=== PATIENT | female | born 1970 | race Caucasian/White ===

== ENCOUNTER → 2017-12-02 | Outpatient (CLI) | payer OTHER ==
[~2017-12-02] MED LIST: ALPR-624 PO; CYCL-1 PO; HYDR-3973 PO; PANT-47 PO
[2017-12-02 08:21] LABS: BASOPHILS % (AUTO) 0.4 % (0-1); EOSINOPHILS # (AUTO) 0.5 X10'3 (0-0.9); HEMATOCRIT 40.9 % (35.0-45.0); HEMOGLOBIN 14.3 g/dl (12.0-16.0); LYMPHOCYTES # (AUTO) 2.2 X10'3 (1.1-4.8); LYMPHOCYTES % (AUTO) 27.6 % (21-51); MEAN CORPUSCULAR HEMOGLOBIN 32.5 PG (27.0-31.0); MEAN CORPUSCULAR VOLUME 92.7 FL (78-98); MEAN PLATELET VOLUME 8.4 FL (7.4-10.4); MONOCYTES # (AUTO) 0.7 X10'3 (0-0.9); MONOCYTES % (AUTO) 8.8 % (2-12); NEUTROPHILS # (AUTO) 4.6 X10'3 (1.8-7.7); NEUTROPHILS % (AUTO) 57.2 % (42-75); PLATELET COUNT 264 X10'3 (140-440); RED BLOOD COUNT 4.42 X10'6 (4.20-5.60); WHITE BLOOD COUNT 8.1 X10'3 (4.5-11.0)
[2017-12-02 08:23] LABS: CLARITY,URINE Clear (Clear); COLOR,URINE Yellow (Yellow); GLUCOSE, URINE Negative (Neg); KETONES,URINE Negative (Neg); LEUKOCYTE ESTERASE ,URINE Negative (Neg); NITRITES, URINE Negative (Neg); OCCULT BLOOD,URINE Negative (Neg); PROTEIN,URINE Negative (Neg); UA COLLECTION TYPE NON-SPECIFIED; UROBILINOGEN,URINE 0.2 E.U/dL (0.2-1.0)
[2017-12-02 08:44] LABS: ALANINE AMINOTRANSFERASE 94 U/L (12-78); ALBUMIN 3.7 G/DL (3.4-5.0); ALBUMIN/GLOBULIN RATIO 1.1 (1.1-1.5); ALKALINE PHOSPHATASE 102 IU/L (46-116); ASPARTATE AMINO TRANSFERASE 15 U/L (10-37); BILIRUBIN,TOTAL 0.3 MG/DL (0.1-1.0); BLOOD UREA NITROGEN 19 MG/DL (7-18); BUN/CREATININE RATIO 34.5 (6.6-38.0); CALCIUM 8.9 MG/DL (8.5-10.1); CHLORIDE 105 MMOL/L (99-107); CHOLESTEROL 155 MG/DL (0-200); CREATININE 0.55 MG/DL (0.40-0.90); GLUCOSE 92 MG/DL (70-104); HDL CHOLESTEROL 52 MG/DL (35-60); LDL CHOLESTEROL 85 MG/DL (50-100); POTASSIUM 4.4 MMOL/L (3.5-5.1); TOTAL CARBON DIOXIDE 25.7 MMOL/L (24-32); TRIGLYCERIDES 108 MG/DL (20-135); eGFR > 90 ML/MIN
[2017-12-02 09:11] LABS: ANION GAP 11 (8-16); SODIUM 142 MMOL/L (135-145)
== END ==
LOC: LAB 07:31
PROVIDERS: ATTEND Family Medicine
DX: Z00.01 Encounter for general adult medical examination with abnormal findings (principal); Z87.891 Personal history of nicotine dependence
CPT/HCPCS: 36415; 80053; 80061; 81003; 82607; 82746; 84439; 84443; 85025

== ENCOUNTER 2018-02-27 08:59 | Day surgery (SDC) | payer OTHER ==
[~2018-02-27] VITALS: Ht 175.3 cm; Wt 106.8 kg
[2018-02-27] MEDS ORDERED: MIDAZolam 5mg/5ml vial ONE (09:10)
[2018-02-27] MEDS ORDERED: fentaNYL/PF 50MCG/1 ML 2ML syringe ONE (09:10)
[2018-02-27] MEDS ORDERED: LIDOcaine Viscous 15ml cup ONE (09:10)
[2018-02-27] MEDS ORDERED: CYCL-1 PO (09:22)
[2018-02-27 09:35] VITALS: BP 153/83
[2018-02-27 10:10] VITALS: BP 140/80
[2018-02-27 10:20] VITALS: BP 149/91
[2018-02-27 10:30] VITALS: BP 149/85
[2018-02-27 10:40] VITALS: BP 141/89
== END 2018-02-27 10:45 | disposition home or self-care (01) ==
LOC: GI LAB 08:59
PROVIDERS: ATTEND Internal Medicine Gastroenterology
DX: K44.9 Diaphragmatic hernia without obstruction or gangrene (principal); K29.70 Gastritis, unspecified, without bleeding; F17.210 Nicotine dependence, cigarettes, uncomplicated; K21.9 Gastro-esophageal reflux disease without esophagitis; E06.3 Autoimmune thyroiditis; F41.9 Anxiety disorder, unspecified; Z90.49 Acquired absence of other specified parts of digestive tract; Z72.89 Other problems related to lifestyle; Z98.51 Tubal ligation status; Z79.891 Long term (current) use of opiate analgesic; Z79.899 Other long term (current) drug therapy
CPT/HCPCS: 43239; 99152; J2250; J3010; J7030; A4620; G0500

== ENCOUNTER 2018-04-25 15:35 | Outpatient (CLI) | payer OTHER ==
[~2018-04-25 15:35] MED LIST changes: -ALPR-624 PO
== END 2018-04-25 23:59 | disposition home or self-care (01) ==
LOC: RAD 15:35
PROVIDERS: ATTEND Family Medicine
DX: S83.242A Other tear of medial meniscus, current injury, left knee, initial encounter (principal); M65.862 Other synovitis and tenosynovitis, left lower leg; M71.22 Synovial cyst of popliteal space [Baker], left knee; M25.462 Effusion, left knee; R60.0 Localized edema; X58.XXXA Exposure to other specified factors, initial encounter; Y92.89 Other specified places as the place of occurrence of the external cause; Y99.8 Other external cause status; Y93.89 Activity, other specified
CPT/HCPCS: 73721

== ENCOUNTER 2018-08-09 08:51 | Outpatient (CLI) | payer OTHER ==
[2018-08-09 10:21] LABS: BASOPHILS # (AUTO) 0.1 X10'3 (0-0.2); BASOPHILS % (AUTO) 0.8 % (0-1); EOSINOPHILS # (AUTO) 0.4 X10'3 (0-0.9); EOSINOPHILS % (AUTO) 4.6 % (0-6); HEMATOCRIT 45.5 % (35.0-45.0); HEMOGLOBIN 15.4 g/dl (12.0-16.0); LYMPHOCYTES # (AUTO) 2.1 X10'3 (1.1-4.8); LYMPHOCYTES % (AUTO) 21.2 % (21-51); MEAN CORPUSCULAR HEMOGLOBIN 31.5 PG (27.0-31.0); MEAN CORPUSCULAR HGB CONC 33.8 % (33.0-36.5); MEAN CORPUSCULAR VOLUME 93.2 FL (78-98); MEAN PLATELET VOLUME 9.5 FL (7.4-10.4); MONOCYTES # (AUTO) 0.7 X10'3 (0-0.9); MONOCYTES % (AUTO) 7.1 % (2-12); NEUTROPHILS # (AUTO) 6.4 X10'3 (1.8-7.7); NEUTROPHILS % (AUTO) 66.3 % (42-75); PLATELET COUNT 301 X10'3 (140-440); RED BLOOD COUNT 4.88 X10'6 (4.20-5.60); RED CELL DISTRIBUTION WIDTH 14.3 % (11.5-14.5); WHITE BLOOD COUNT 9.7 X10'3 (4.5-11.0)
[2018-08-09 10:43] LABS: ALANINE AMINOTRANSFERASE 29 U/L (12-78); ALBUMIN 3.5 G/DL (3.4-5.0); ALBUMIN/GLOBULIN RATIO 0.9 (1.1-1.5); ALKALINE PHOSPHATASE 108 IU/L (46-116); ANION GAP 12 (8-16); ASPARTATE AMINO TRANSFERASE 10 U/L (10-37); BILIRUBIN,TOTAL 0.4 MG/DL (0.1-1.0); BLOOD UREA NITROGEN 14 MG/DL (7-18); BUN/CREATININE RATIO 22.6 (6.6-38.0); CALCIUM 8.7 MG/DL (8.5-10.1); CHLORIDE 107 MMOL/L (99-107); CREATININE 0.62 MG/DL (0.40-0.90); GLUCOSE 102 MG/DL (70-104); POTASSIUM 3.8 MMOL/L (3.5-5.1); SODIUM 143 MMOL/L (135-145); TOTAL CARBON DIOXIDE 23.8 MMOL/L (24-32); TOTAL PROTEIN 7.2 G/DL (6.4-8.2); eGFR > 90 ML/MIN
== END 2018-08-09 23:59 | disposition home or self-care (01) ==
LOC: LAB 08:51
PROVIDERS: ATTEND Family Medicine
DX: R53.81 Other malaise (principal); K21.9 Gastro-esophageal reflux disease without esophagitis; F17.200 Nicotine dependence, unspecified, uncomplicated
CPT/HCPCS: 36415; 80053; 84439; 84443; 85025; 86803

== ENCOUNTER 2019-02-06 09:35 | Outpatient (CLI) | payer OTHER | END 2019-02-06 23:59 | disposition home or self-care (01) | LOC: 64 CT 09:35 | PROVIDERS: ATTEND Family Medicine | DX: M47.898 Other spondylosis, sacral and sacrococcygeal region (principal) | CPT/HCPCS: 72192 ==

== ENCOUNTER 2019-02-16 09:40 | Outpatient (CLI) | payer OTHER | END 2019-02-16 23:59 | disposition home or self-care (01) | LOC: RAD 09:40 | PROVIDERS: ATTEND Family Medicine | DX: S73.192A Other sprain of left hip, initial encounter (principal); M25.452 Effusion, left hip; K57.30 Diverticulosis of large intestine without perforation or abscess without bleeding; M76.892 Other specified enthesopathies of left lower limb, excluding foot; K21.9 Gastro-esophageal reflux disease without esophagitis; F17.200 Nicotine dependence, unspecified, uncomplicated; Z90.710 Acquired absence of both cervix and uterus; X58.XXXA Exposure to other specified factors, initial encounter; Y93.89 Activity, other specified; Y92.89 Other specified places as the place of occurrence of the external cause; Y99.8 Other external cause status | CPT/HCPCS: 72195; 73721 ==

== ENCOUNTER → 2019-03-02 | Day surgery (SDC) | payer OTHER ==
[~2019-03-02] MED LIST changes: +BUPIVAcaine/PF 2.5mg/ml (0.25%) 10ml vial ONE; +triamcinolone acetonide 40mg/ml inj IJ ONE
== END | disposition home or self-care (01) ==
LOC: RAD 08:58
PROVIDERS: ATTEND Family Medicine
DX: M25.552 Pain in left hip (principal)
CPT/HCPCS: 27095; 73525; J3301; J3490

== ENCOUNTER 2019-05-31 09:53 | Outpatient (CLI) | payer OTHER ==
[~2019-05-31 09:53] MED LIST changes: -BUPIVAcaine/PF 2.5mg/ml (0.25%) 10ml vial ONE; -triamcinolone acetonide 40mg/ml inj IJ ONE
[2019-05-31] MEDS ORDERED: iohexol 240mg/ml 10ml vial ONE (10:00)
[2019-05-31] MEDS ORDERED: LIDOcaine 1% (10mg/ml)w/preservative injection 20ml MDV ONE (10:00)
[2019-05-31] MEDS ORDERED: triamcinolone acetonide 40mg/ml inj ONE (10:00)
[2019-05-31] MEDS ORDERED: BUPIVAcaine 0.5% inj/PF 30 ml vial ONE (10:00)
== END 2019-05-31 23:59 | disposition home or self-care (01) ==
LOC: RAD 09:53
PROVIDERS: ATTEND Family Medicine
DX: M25.552 Pain in left hip (principal)
CPT/HCPCS: 20610; 77002; J2001; J3301; Q9966

== ENCOUNTER 2019-07-26 08:48 | Outpatient (CLI) | payer OTHER | END 2019-07-26 23:59 | disposition home or self-care (01) | LOC: RAD 08:48 | PROVIDERS: ATTEND Orthopaedic Surgery | DX: M16.12 Unilateral primary osteoarthritis, left hip (principal); F17.200 Nicotine dependence, unspecified, uncomplicated; Z72.89 Other problems related to lifestyle | CPT/HCPCS: 73503 ==

== ENCOUNTER 2019-10-08 13:59 | Outpatient (CLI) | payer OTHER ==
[2019-10-08 15:02] LABS: ALANINE AMINOTRANSFERASE 428 U/L (12-78); ALBUMIN 3.9 G/DL (3.4-5.0); ALKALINE PHOSPHATASE 228 IU/L (46-116); ANION GAP 12 (8-16); ASPARTATE AMINO TRANSFERASE 511 U/L (10-37); BILIRUBIN,TOTAL 0.7 MG/DL (0.1-1.0); BLOOD UREA NITROGEN 34 MG/DL (7-18); BUN/CREATININE RATIO 31.2 (6.6-38.0); CALCIUM 8.9 MG/DL (8.5-10.1); CHLORIDE 103 MMOL/L (99-107); CREATININE 1.09 MG/DL (0.40-0.90); GLUCOSE 105 MG/DL (70-104); POTASSIUM 4.3 MMOL/L (3.5-5.1); SODIUM 138 MMOL/L (135-145); TOTAL CARBON DIOXIDE 22.8 MMOL/L (24-32); TOTAL PROTEIN 7.7 G/DL (6.4-8.2); eGFR 53 ML/MIN
== END 2019-10-08 23:59 | disposition home or self-care (01) ==
LOC: CARD DIAG 13:59
PROVIDERS: ATTEND Nurse Practitioner Family
DX: Z01.818 Encounter for other preprocedural examination (principal); R01.1 Cardiac murmur, unspecified; K21.9 Gastro-esophageal reflux disease without esophagitis; Z87.891 Personal history of nicotine dependence; Z72.89 Other problems related to lifestyle
CPT/HCPCS: 36415; 80053; 83880; 93306

== ENCOUNTER 2019-11-05 09:02 | Inpatient (IN) | payer OTHER ==
[2019-10-31 10:57] LABS: BASOPHILS # (AUTO) 0.1 X10'3 (0-0.2); EOSINOPHILS # (AUTO) 0.4 X10'3 (0-0.9); EOSINOPHILS % (AUTO) 3.3 % (0-6); LYMPHOCYTES # (AUTO) 1.9 X10'3 (1.1-4.8); LYMPHOCYTES % (AUTO) 17.6 % (21-51); MEAN CORPUSCULAR HEMOGLOBIN 33.1 PG (27.0-31.0); MEAN CORPUSCULAR HGB CONC 34.2 g/dL (33.0-36.5); MEAN CORPUSCULAR VOLUME 96.8 FL (78-98); MEAN PLATELET VOLUME 7.9 FL (7.4-10.4); MONOCYTES % (AUTO) 9.4 % (2-12); NEUTROPHILS # (AUTO) 7.3 X10'3 (1.8-7.7); NEUTROPHILS % (AUTO) 68.7 % (42-75); PRE OP HEMATOCRIT 47.3 % (35.0-45.0); PRE OP HEMOGLOBIN 16.2 g/dL (12.0-16.0); PRE OP PLATELET COUNT 396 X10'3 (140-440); RED BLOOD COUNT 4.88 X10'6 (4.20-5.60); RED CELL DISTRIBUTION WIDTH 14.9 % (11.5-14.5)
[2019-10-31 11:06] LABS: PRE OP PROTIME 10.1 SECONDS (9.0-12.0)
[2019-10-31 11:16] LABS: ALBUMIN 4.2 G/DL (3.4-5.0); ALKALINE PHOSPHATASE 125 IU/L (46-116); BLOOD UREA NITROGEN 17 MG/DL (7-18); BUN/CREATININE RATIO 22.7 (6.6-38.0); CALCIUM 9.7 MG/DL (8.5-10.1); CHLORIDE 104 MMOL/L (99-107); CREATININE 0.75 MG/DL (0.40-0.90); PRE OP ALT 30 U/L (30-65); PRE OP ANION GAP 9 (8-16); PRE OP AST 11 U/L (10-37); PRE OP BILIRUB, TOTAL 0.4 MG/DL (0.0-1.0); PRE OP GLUCOSE 133 MG/DL (70-104); PRE OP POTASSIUM 4.6 MMOL/L (3.4-5.1); PRE OP SODIUM 140 MMOL/L (135-145); TOTAL CARBON DIOXIDE 27.1 MMOL/L (24-32); TOTAL PROTEIN 8.3 G/DL (6.4-8.2); eGFR 82 ML/MIN
[2019-11-05] VITALS (17 sets, daily range): BP systolic 114–158; BP diastolic 55–97
[~2019-11-05] VITALS: Ht 175.3 cm; Wt 147.0 kg
[~2019-11-05 09:02] MED LIST changes: +ACET-2615 PO; +DULO-31 PO; +FURO80TA87 PO; -HYDR-3973 PO; +NAPR-1144 PO; +OXYC15TA88 PO; -PANT-47 PO; +POTA10CA44 PO; +albuterol 2.5 MG/3 ML nebule NEB ONE; +ceFAZolin 1GM/D5W- ADD-VANTAGE 50 ML IV ONE; +cefazolin/dext.iso 2gm/100ml 100 ML IV ONE; +famotidine 10mg tablet PO ONE; +ringers solution, lacted 1,000 ML IV SCH; +tranexamic acid inj. 1,000 MG in normal saline 100 ML IV ONE; +vancomycin inj 1,500 MG in normal saline 300ml IV soln IV ONE
[2019-11-05] MEDS ORDERED: MIDAZolam 5mg/5ml vial ONE (10:27)
[2019-11-05] MEDS ORDERED: morphine /PF 1mg/ml 10ml inj. ONE (10:30)
[2019-11-05] MEDS ORDERED: ePHEDrine 50MG/ML INJ. ONE (10:56)
[2019-11-05] MEDS ORDERED: propofol inj 20 ML IV ONE ×3 (10:56)
[2019-11-05] MEDS ORDERED: diphenhydrAMINE 50 mg/ml inj ONE (10:59)
[2019-11-05] MEDS ORDERED: ceFAZolin 1000mg inj ONE (11:11)
[2019-11-05] MEDS ORDERED: ringers solution, lacted 1,000 ML IV SCH (11:17)
[2019-11-05] MEDS ORDERED: naloxone 2mg/2ml inj 2 MG in normal saline 500ml IV soln 500 ML IV PRN (11:17)
[2019-11-05] MEDS ORDERED: proCHLORperazine 10 MG/2 ml inj IV PRN (11:20)
[2019-11-05] MEDS ORDERED: HYDROmorphone inj. 0.5 MG/0.5 ML DISP.SYRIN IV PRN ×2 (11:20)
[2019-11-05] MEDS ORDERED: meperidine/PF 25mg/ml syringe IV PRN (11:20)
[2019-11-05] MEDS ORDERED: acetaminophen 1,000mg/100ml IV 100 ML IV PRN (11:20)
[2019-11-05] MEDS ORDERED: morphine 4 MG/ML inj SYRINge IV PRN ×2 (11:20)
[2019-11-05] MEDS ORDERED: diphenhydrAMINE 50 mg/ml inj IV PRN (11:20)
[2019-11-05] MEDS ORDERED: ondansetron/PF 4mg/2ml inj IV PRN ×3 (11:20→13:30)
[2019-11-05] MEDS ORDERED: ondansetron/PF 4mg/2ml inj ONE (12:48)
[2019-11-05] MEDS ORDERED: dexamethasone sod phosphate 4mg/ml inj. ONE (12:49)
[2019-11-05] MEDS ORDERED: ketorolac trometh. 30mg/ml inj. ONE (13:04)
[2019-11-05] MEDS ORDERED: magnesium hydroxide 30ml (MOM) UD suspension PO PRN (13:30)
[2019-11-05] MEDS ORDERED: bisacodyl 10mg suppository rectal RC PRN (13:30)
[2019-11-05] MEDS ORDERED: acetaminophen 325mg tablet PO PRN (13:30)
[2019-11-05] MEDS ORDERED: diphenhydrAMINE 25mg capsule PO PRN ×2 (13:30)
--- NOTE | 2019-11-05 13:31 | NUR ---
Received from OR via , accompanied by Anesthesiologist DR FLOOD and report given by Anesthesiolgist. AWAKENS TO VOICE. VITALS STABLE. DRESSINGS DI. VALENTIN PAIN. MOVES ALL EXTREMITIES. SENSATION AT THE KNEES. GIBSON WITH CLEAR URINE.
--- NOTE | 2019-11-05 14:31 | NUR ---
Report called to receiving nurse. Transferred via BED Belongings . Special Issues communicated to receiving nurse. AWAKE AND ORIENTED. VITALS STABLE. DRESSINGS DI. VALENTIN PAIN. TO DESTINI RM [id number] AT THIS TIME.
[2019-11-05] MEDS: ketorolac trometh. 30mg/ml inj. IV SCH ×2 (14:48→20:42)
[2019-11-05] MEDS: oxyCODONE IR 5mg (immed. release) tablet PO PRN ×3 (15:15→20:42)
[2019-11-05] MEDS: ceFAZolin 1GM/D5W- ADD-VANTAGE 50 ML IV SCH ×2 (16:17→23:26)
[2019-11-05] MEDS ORDERED: tranexamic acid inj. 1,000 MG in normal saline 100ml IV soln 100 ML IV ONE (16:30)
[2019-11-05] MEDS: HYDROmorphone 1 mg/ml syringe IV PRN ×2 (17:08→23:27)
[2019-11-05] MEDS: potassium Cl 20mEq in NS 1,000 ML IV SCH (17:12)
[2019-11-05] MEDS: aspirin 325mg tablet PO SCH (17:30)
[2019-11-05] MEDS ORDERED: vancomycin/NS 1 GM ADD-VANTAGE 250 ML IV SCH (20:00)
[2019-11-05] MEDS: potassium chloride 8mEq ER tablet PO SCH (20:42)
[2019-11-05] MEDS: sennosides 8.6mg tablet PO SCH (20:43)
[2019-11-06] MEDS: potassium Cl 20mEq in NS 1,000 ML IV SCH ×3 (03:10→17:24)
[2019-11-06] MEDS: ketorolac trometh. 30mg/ml inj. IV SCH ×2 (03:10→09:10)
[2019-11-06] MEDS: oxyCODONE IR 5mg (immed. release) tablet PO PRN ×5 (05:28→21:12)
[2019-11-06 06:00] VITALS: BP 151/102
[2019-11-06 06:15] LABS: BASOPHILS # (AUTO) 0.1 X10'3 (0-0.2); BASOPHILS % (AUTO) 0.4 % (0-1); EOSINOPHILS % (AUTO) 0 % (0-6); HEMATOCRIT 28.4 % (35.0-45.0); HEMOGLOBIN 9.6 g/dl (12.0-16.0); LYMPHOCYTES # (AUTO) 1.5 X10'3 (1.1-4.8); LYMPHOCYTES % (AUTO) 9.5 % (21-51); MEAN CORPUSCULAR HEMOGLOBIN 32.9 PG (27.0-31.0); MEAN CORPUSCULAR HGB CONC 33.8 g/dL (33.0-36.5); MEAN CORPUSCULAR VOLUME 97.4 FL (78-98); MEAN PLATELET VOLUME 8.1 FL (7.4-10.4); MONOCYTES # (AUTO) 2.1 X10'3 (0-0.9); NEUTROPHILS # (AUTO) 12.4 X10'3 (1.8-7.7); NEUTROPHILS % (AUTO) 77.1 % (42-75); PLATELET COUNT 293 X10'3 (140-440); RED BLOOD COUNT 2.92 X10'6 (4.20-5.60); RED CELL DISTRIBUTION WIDTH 14.6 % (11.5-14.5); WHITE BLOOD COUNT 16.2 X10'3 (4.5-11.0)
--- NOTE | 2019-11-06 06:30 | NUR ---
REPORT GIVEN TO JAMAR MCALLISTER
[2019-11-06 06:51] LABS: ALANINE AMINOTRANSFERASE 27 U/L (12-78); ALBUMIN 2.8 G/DL (3.4-5.0); ALKALINE PHOSPHATASE 65 IU/L (46-116); ANION GAP 11 (8-16); ASPARTATE AMINO TRANSFERASE 28 U/L (10-37); BILIRUBIN,TOTAL 0.4 MG/DL (0.1-1.0); BLOOD UREA NITROGEN 33 MG/DL (7-18); BUN/CREATININE RATIO 29.7 (6.6-38.0); CALCIUM 8.5 MG/DL (8.5-10.1); CHLORIDE 105 MMOL/L (99-107); CREATININE 1.11 MG/DL (0.40-0.90); GLUCOSE 135 MG/DL (70-104); SODIUM 137 MMOL/L (135-145); TOTAL CARBON DIOXIDE 20.6 MMOL/L (24-32); TOTAL PROTEIN 5.7 G/DL (6.4-8.2); eGFR 52 ML/MIN
[2019-11-06 09:03] LABS: PLATELET ESTIMATE NORMAL; POLYCHROMASIA 1+; TOTAL CELLS COUNTED 100
[2019-11-06] MEDS: aspirin 325mg tablet PO SCH ×2 (09:20→17:24)
[2019-11-06] MEDS: potassium chloride 8mEq ER tablet PO SCH (09:20)
[2019-11-06] MEDS: duloxetine 30mg CAPSULE.DR PO SCH (09:24)
[2019-11-06] MEDS: furosemide 20MG tablet PO SCH (09:24)
[2019-11-06 10:00] VITALS: BP 124/84
[2019-11-06] MEDS: HYDROmorphone 1 mg/ml syringe IV PRN ×2 (12:50→22:13)
[2019-11-06 14:00] VITALS: BP 124/86
--- NOTE | 2019-11-06 14:48 | NUR ---
Joint replacement consult: Pt seen by RD for written/verbal high protein ed. RD reviewed high protein needs for wound healing, immune strength, high protein foods, and protein supplementation options. RD contact information provided in case of further questions. Pt reports drinking premier proteins at home; RD encouraged to bring from home for additional protein needs. Pt is agreeable to chocolate ensure pudding w/ dinners; dietary notified. Addendum: 11/06/19 at [address] Amended: Links added.
[2019-11-06 18:00] VITALS: BP 117/84
--- NOTE | 2019-11-06 18:15 | NUR ---
RECEIVED REPORT FROM JAMAR MCALLISTER AND ASSUMED PATIENT CARE
[2019-11-06] MEDS: sennosides 8.6mg tablet PO SCH (21:12)
[2019-11-06 22:00] VITALS: BP 157/67
[2019-11-07] VITALS (10 sets, daily range): BP systolic 127–153; BP diastolic 65–85
[2019-11-07] MEDS: oxyCODONE IR 5mg (immed. release) tablet PO PRN ×2 (01:44→05:30)
[2019-11-07] MEDS: potassium Cl 20mEq in NS 1,000 ML IV SCH (05:29)
[2019-11-07] MEDS ORDERED: oxyCODONE/APAP 10/325mg tablet PO PRN (06:15)
--- NOTE | 2019-11-07 06:15 | NUR ---
Patient in room ORTHO 4024. I have received report from MARQUISE MCALLISTER and had the opportunity to ask questions and assume patient care.
[2019-11-07 06:37] LABS: BASOPHILS # (AUTO) 0.1 X10'3 (0-0.2); BASOPHILS % (AUTO) 0.6 % (0-1); EOSINOPHILS # (AUTO) 0.4 X10'3 (0-0.9); EOSINOPHILS % (AUTO) 3.9 % (0-6); HEMATOCRIT 22.1 % (35.0-45.0); HEMOGLOBIN 7.6 g/dl (12.0-16.0); LYMPHOCYTES # (AUTO) 1.5 X10'3 (1.1-4.8); LYMPHOCYTES % (AUTO) 16.1 % (21-51); MEAN CORPUSCULAR HEMOGLOBIN 33.4 PG (27.0-31.0); MEAN CORPUSCULAR HGB CONC 34.6 g/dL (33.0-36.5); MEAN CORPUSCULAR VOLUME 96.7 FL (78-98); MEAN PLATELET VOLUME 8.2 FL (7.4-10.4); MONOCYTES # (AUTO) 1.6 X10'3 (0-0.9); MONOCYTES % (AUTO) 17.8 % (2-12); NEUTROPHILS # (AUTO) 5.6 X10'3 (1.8-7.7); NEUTROPHILS % (AUTO) 61.6 % (42-75); PLATELET COUNT 237 X10'3 (140-440); RED BLOOD COUNT 2.29 X10'6 (4.20-5.60); RED CELL DISTRIBUTION WIDTH 14.4 % (11.5-14.5); WHITE BLOOD COUNT 9.1 X10'3 (4.5-11.0)
[2019-11-07 07:29] LABS: ALANINE AMINOTRANSFERASE 23 U/L (12-78); ALBUMIN 2.5 G/DL (3.4-5.0); ALBUMIN/GLOBULIN RATIO 0.8 (1.1-1.5); ALKALINE PHOSPHATASE 60 IU/L (46-116); ANION GAP 8 (8-16); ASPARTATE AMINO TRANSFERASE 27 U/L (10-37); BILIRUBIN,TOTAL 0.3 MG/DL (0.1-1.0); BLOOD UREA NITROGEN 16 MG/DL (7-18); BUN/CREATININE RATIO 24.6 (6.6-38.0); CHLORIDE 105 MMOL/L (99-107); CREATININE 0.65 MG/DL (0.40-0.90); GLUCOSE 115 MG/DL (70-104); POTASSIUM 4.5 MMOL/L (3.5-5.1); SODIUM 138 MMOL/L (135-145); TOTAL CARBON DIOXIDE 24.9 MMOL/L (24-32); TOTAL PROTEIN 5.7 G/DL (6.4-8.2); eGFR > 90 ML/MIN
[2019-11-07] MEDS: aspirin 325mg tablet PO SCH ×2 (08:07→17:45)
[2019-11-07] MEDS: duloxetine 30mg CAPSULE.DR PO SCH (08:07)
[2019-11-07] MEDS: furosemide 20MG tablet PO SCH (08:07)
[2019-11-07] MEDS: potassium chloride 8mEq ER tablet PO SCH (08:07)
[2019-11-07] MEDS: oxyCODONE/APAP 10/325mg tablet PO PRN ×4 (08:08→20:01)
[2019-11-07] MEDS: HYDROmorphone 1 mg/ml syringe IV PRN ×3 (10:13→17:45)
--- NOTE | 2019-11-07 18:10 | NUR ---
Problems reprioritized. Patient report given, questions answered & plan of care reviewed with SERAFIN MCALLISTER.
[2019-11-07] MEDS: sennosides 8.6mg tablet PO SCH (20:01)
--- NOTE | 2019-11-08 | NUR ---
NOTED PATIENTS [place]MER DRESSING SATURATED WITH BLOOD AND ORANGE LIGHT NOT BLINKING INDICATING POOR SUCTION. I WAS GOING TO CHANGE THE DRESSING BUT UPON REMOVAL NOTED BLISTERS UNDER ADHESIVE. DR. CARNEY CALLED AND ADVISED PLACING GAUZE, ABD PAD AND TAPE TO SECURE. PATIENT MEDICATED WITH DILAUDID FOR SEVERE DISCOMFORT DURING PROCEDURE.
[2019-11-08] MEDS: oxyCODONE/APAP 10/325mg tablet PO PRN ×6 (00:02→21:05)
[2019-11-08] MEDS: HYDROmorphone 1 mg/ml syringe IV PRN ×3 (00:38→14:34)
[2019-11-08 06:00] VITALS: BP 131/79
--- NOTE | 2019-11-08 06:17 | NUR ---
REPORT GIVEN TO DERIC MCALLISTER
--- NOTE | 2019-11-08 06:40 | NUR ---
Patient in room ORTHO 4024. I have received report from Debra MCALLISTER and had the opportunity to ask questions and assume patient care.
[2019-11-08 06:43] LABS: BASOPHILS # (AUTO) 0.1 X10'3 (0-0.2); BASOPHILS % (AUTO) 0.6 % (0-1); EOSINOPHILS # (AUTO) 0.6 X10'3 (0-0.9); EOSINOPHILS % (AUTO) 5.4 % (0-6); HEMATOCRIT 23.1 % (35.0-45.0); HEMOGLOBIN 8.1 g/dl (12.0-16.0); LYMPHOCYTES # (AUTO) 1.7 X10'3 (1.1-4.8); LYMPHOCYTES % (AUTO) 16.2 % (21-51); MEAN CORPUSCULAR HEMOGLOBIN 33.1 PG (27.0-31.0); MEAN CORPUSCULAR HGB CONC 34.9 g/dL (33.0-36.5); MEAN PLATELET VOLUME 8.5 FL (7.4-10.4); MONOCYTES # (AUTO) 1.3 X10'3 (0-0.9); MONOCYTES % (AUTO) 12.2 % (2-12); NEUTROPHILS # (AUTO) 6.7 X10'3 (1.8-7.7); NEUTROPHILS % (AUTO) 65.6 % (42-75); PLATELET COUNT 226 X10'3 (140-440); RED BLOOD COUNT 2.43 X10'6 (4.20-5.60); RED CELL DISTRIBUTION WIDTH 16.1 % (11.5-14.5); WHITE BLOOD COUNT 10.3 X10'3 (4.5-11.0)
[2019-11-08 07:17] LABS: ALANINE AMINOTRANSFERASE 29 U/L (12-78); ALBUMIN 2.5 G/DL (3.4-5.0); ALBUMIN/GLOBULIN RATIO 0.7 (1.1-1.5); ALKALINE PHOSPHATASE 80 IU/L (46-116); ANION GAP 7 (8-16); ASPARTATE AMINO TRANSFERASE 38 U/L (10-37); BILIRUBIN,TOTAL 0.5 MG/DL (0.1-1.0); BLOOD UREA NITROGEN 12 MG/DL (7-18); BUN/CREATININE RATIO 22.6 (6.6-38.0); CHLORIDE 102 MMOL/L (99-107); CREATININE 0.53 MG/DL (0.40-0.90); GLUCOSE 92 MG/DL (70-104); POTASSIUM 3.7 MMOL/L (3.5-5.1); SODIUM 138 MMOL/L (135-145); TOTAL CARBON DIOXIDE 29.2 MMOL/L (24-32); TOTAL PROTEIN 5.9 G/DL (6.4-8.2); eGFR > 90 ML/MIN
[2019-11-08] MEDS: duloxetine 30mg CAPSULE.DR PO SCH (08:32)
[2019-11-08] MEDS: aspirin 325mg tablet PO SCH ×2 (08:32→17:13)
[2019-11-08] MEDS: potassium chloride 8mEq ER tablet PO SCH (08:32)
[2019-11-08] MEDS: furosemide 20MG tablet PO SCH (08:32)
[2019-11-08 10:00] VITALS: BP 150/76
[2019-11-08 10:19] LABS: NUCLEATED RED BLOOD CELLS 1 /100WBC (0-0); TOTAL CELLS COUNTED 100
[2019-11-08 10:20] LABS: ANISOCYTOSIS 1+; PLATELET ESTIMATE NORMAL; POLYCHROMASIA FEW
[2019-11-08 18:00] VITALS: BP 147/75
--- NOTE | 2019-11-08 18:07 | NUR ---
Problems reprioritized. Patient report given, questions answered & plan of care reviewed with Elly MCALLISTER.
--- NOTE | 2019-11-08 18:25 | NUR ---
Received patient report from ARY Agrawal. Assumed patient care.
--- NOTE | 2019-11-08 18:43 | NUR ---
Student documentation: I have reviewed and agree with all interventions, assessments performed and documented by Pat.
[2019-11-08] MEDS: sennosides 8.6mg tablet PO SCH (21:05)
[2019-11-08 22:00] VITALS: BP 142/72
[2019-11-09] MEDS: oxyCODONE/APAP 10/325mg tablet PO PRN ×4 (01:13→13:41)
[2019-11-09 05:03] LABS: BASOPHILS % (AUTO) 0.4 % (0-1); EOSINOPHILS # (AUTO) 0.6 X10'3 (0-0.9); EOSINOPHILS % (AUTO) 6.7 % (0-6); HEMATOCRIT 23.3 % (35.0-45.0); LYMPHOCYTES # (AUTO) 1.2 X10'3 (1.1-4.8); LYMPHOCYTES % (AUTO) 14.6 % (21-51); MEAN CORPUSCULAR HEMOGLOBIN 32.6 PG (27.0-31.0); MEAN CORPUSCULAR HGB CONC 34.4 g/dL (33.0-36.5); MEAN CORPUSCULAR VOLUME 94.7 FL (78-98); MEAN PLATELET VOLUME 7.9 FL (7.4-10.4); MONOCYTES % (AUTO) 11.5 % (2-12); NEUTROPHILS # (AUTO) 5.7 X10'3 (1.8-7.7); NEUTROPHILS % (AUTO) 66.8 % (42-75); PLATELET COUNT 263 X10'3 (140-440); RED BLOOD COUNT 2.46 X10'6 (4.20-5.60); RED CELL DISTRIBUTION WIDTH 15.7 % (11.5-14.5); WHITE BLOOD COUNT 8.5 X10'3 (4.5-11.0)
[2019-11-09 06:00] VITALS: BP 138/76
--- NOTE | 2019-11-09 06:30 | NUR ---
Patient in room ORTHO 4024. I have received report from Elly and had the opportunity to ask questions and assume patient care.
--- NOTE | 2019-11-09 06:31 | NUR ---
Patient report given, questions answered and plan of care reviewed with ARY Mendoza.
[2019-11-09 07:22] LABS: ANISOCYTOSIS 1+; PLATELET ESTIMATE NORMAL; POLYCHROMASIA FEW; TOTAL CELLS COUNTED 100
[2019-11-09] MEDS: furosemide 20MG tablet PO SCH (07:29)
[2019-11-09] MEDS: potassium chloride 8mEq ER tablet PO SCH (07:29)
[2019-11-09] MEDS: duloxetine 30mg CAPSULE.DR PO SCH (07:29)
[2019-11-09] MEDS: aspirin 325mg tablet PO SCH (07:29)
[2019-11-09 10:00] VITALS: BP 124/70
--- NOTE | 2019-11-09 15:05 | NUR ---
Reviewed discharge instructions with pt. Pt verbalized understanding. Pt is alert, oriented and does not complain of pain at this time. All of pt's belongings were returned to pt. Pt was wheeled downstairs to be driven home by family/friend.
== END 2019-11-09 15:05 | disposition home or self-care (01) | DRG 470 ==
LOC: PAS 09:02 → PAS IN 09:12 → EDSTATUS 11:00 → ORTHO 4S 14:35
PROVIDERS: ADMIT Orthopaedic Surgery; ATTEND Orthopaedic Surgery
PROC: 0SRB06Z Replacement of Left Hip Joint with Oxidized Zirconium on Polyethylene Synthetic Substitute, Open Approach (ICD-10-PCS; principal; 2019-11-05 10:23)
PROC: 30233N1 Transfusion of Nonautologous Red Blood Cells into Peripheral Vein, Percutaneous Approach (ICD-10-PCS; 2019-11-07)
DX: M16.12 Unilateral primary osteoarthritis, left hip (principal); D62 Acute posthemorrhagic anemia; Z68.42 Body mass index [BMI] 45.0-49.9, adult; F41.9 Anxiety disorder, unspecified; E66.01 Morbid (severe) obesity due to excess calories; K21.9 Gastro-esophageal reflux disease without esophagitis; E06.3 Autoimmune thyroiditis
CPT/HCPCS: Z7506; Z7508; 36415; 80053; 82948; 84443; 85025; 85610; 85730; 86885; 86900; 86901; 86920; 87081; 94640; 94760; 97110; 97116; 97162; 97530; A4618; A7000; C1758; C1776; G0378; J0690; J1100; J1170; J1200; J1885; J2250; J2270; J2405; J2704; J3370; J3480; J7120; P9016

== ENCOUNTER 2019-11-12 10:35 | Inpatient (IN) | payer OTHER ==
[~2019-11-12] VITALS: Ht 175.3 cm; Wt 136.0 kg
[~2019-11-12 10:35] MED LIST changes: -ACET-2615 PO; -CYCL-1 PO; -NAPR-1144 PO; -OXYC15TA88 PO; -albuterol 2.5 MG/3 ML nebule NEB ONE; -ceFAZolin 1GM/D5W- ADD-VANTAGE 50 ML IV ONE; -cefazolin/dext.iso 2gm/100ml 100 ML IV ONE; -famotidine 10mg tablet PO ONE; -ringers solution, lacted 1,000 ML IV SCH; -tranexamic acid inj. 1,000 MG in normal saline 100 ML IV ONE; -vancomycin inj 1,500 MG in normal saline 300ml IV soln IV ONE
[2019-11-12 11:14] LABS: BASOPHILS % (AUTO) 0.4 % (0-1); EOSINOPHILS # (AUTO) 0.8 X10'3 (0-0.9); EOSINOPHILS % (AUTO) 6.7 % (0-6); HEMATOCRIT 27.1 % (35.0-45.0); LYMPHOCYTES # (AUTO) 1.5 X10'3 (1.1-4.8); LYMPHOCYTES % (AUTO) 13.5 % (21-51); MEAN CORPUSCULAR HEMOGLOBIN 32.4 PG (27.0-31.0); MEAN CORPUSCULAR HGB CONC 33.3 g/dL (33.0-36.5); MEAN CORPUSCULAR VOLUME 97.2 FL (78-98); MEAN PLATELET VOLUME 7.4 FL (7.4-10.4); MONOCYTES # (AUTO) 1.4 X10'3 (0-0.9); NEUTROPHILS # (AUTO) 7.7 X10'3 (1.8-7.7); NEUTROPHILS % (AUTO) 67.4 % (42-75); PLATELET COUNT 409 X10'3 (140-440); RED BLOOD COUNT 2.79 X10'6 (4.20-5.60); RED CELL DISTRIBUTION WIDTH 15.9 % (11.5-14.5); WHITE BLOOD COUNT 11.4 X10'3 (4.5-11.0)
[2019-11-12] MEDS ORDERED: fentaNYL/PF 50MCG/1 ML 2ML syringe IV ONE (11:20)
[2019-11-12] MEDS ORDERED: normal saline 1000ML IV soln IVB ONE (11:20)
[2019-11-12] MEDS ORDERED: ondansetron/PF 4mg/2ml inj IV ONE (11:20)
[2019-11-12 11:28] LABS: ALANINE AMINOTRANSFERASE 83 U/L (12-78); ALBUMIN 2.9 G/DL (3.4-5.0); ALBUMIN/GLOBULIN RATIO 0.7 (1.1-1.5); ALKALINE PHOSPHATASE 161 IU/L (46-116); ANION GAP 11 (8-16); ASPARTATE AMINO TRANSFERASE 79 U/L (10-37); BILIRUBIN,TOTAL 1.2 MG/DL (0.1-1.0); BLOOD UREA NITROGEN 15 MG/DL (7-18); CALCIUM 8.8 MG/DL (8.5-10.1); CHLORIDE 101 MMOL/L (99-107); GLUCOSE 101 MG/DL (70-104); SODIUM 137 MMOL/L (135-145); TOTAL CARBON DIOXIDE 25.1 MMOL/L (24-32); TOTAL PROTEIN 6.8 G/DL (6.4-8.2); eGFR > 90 ML/MIN
[2019-11-12 11:32] LABS: ANISOCYTOSIS 1+; NUCLEATED RED BLOOD CELLS 3 /100WBC (0-0); PLATELET ESTIMATE NORMAL; POLYCHROMASIA 1+; TOTAL CELLS COUNTED 100
[2019-11-12] MEDS ORDERED: magnesium hydroxide 30ml (MOM) UD suspension PO PRN (12:00)
[2019-11-12] MEDS ORDERED: acetaminophen 325mg tablet PO PRN (12:00)
[2019-11-12] MEDS ORDERED: morphine 2 MG/ML inj. syringe IV PRN (12:00)
[2019-11-12] MEDS ORDERED: mag hydrox/Alum hydrox/simeth 30ml oral suspension PO PRN (12:00)
[2019-11-12] MEDS ORDERED: FURO20TA4 PO (12:31)
[2019-11-12] MEDS ORDERED: OXYC15TA88 PO (12:31)
[2019-11-12] MEDS ORDERED: POTA8TAB57 PO (12:31)
[2019-11-12] MEDS: ondansetron/PF 4mg/2ml inj IV PRN (13:30)
[2019-11-12] MEDS: morphine 2 MG/ML inj. syringe IV PRN ×2 (13:31→18:53)
[2019-11-12 14:30] VITALS: BP 136/68
--- NOTE | 2019-11-12 14:41 | NUR ---
SPOKE WITH WOUND CARE, WILL BE UP TOMORROW MORNING TO EVAL.
[2019-11-12] MEDS: oxyCODONE IR 5mg (immed. release) tablet PO PRN ×2 (14:59→20:58)
[2019-11-12 18:00] VITALS: BP 138/58
--- NOTE | 2019-11-12 18:20 | NUR ---
Received report from ARY Fernández. Assumed patient care.
[2019-11-12] MEDS ORDERED: heparin, porcine 5000 units/ml vial SQ SCH (20:00)
[2019-11-12 22:00] VITALS: BP 131/73
[2019-11-13] MEDS: morphine 2 MG/ML inj. syringe IV PRN ×2 (00:03→05:36)
[2019-11-13] MEDS: oxyCODONE IR 5mg (immed. release) tablet PO PRN (03:00)
[2019-11-13 06:00] VITALS: BP_SYST 134; BP_SYST 149; BP_DIAS 72; BP_DIAS 83
[2019-11-13 06:04] LABS: BASOPHILS % (AUTO) 0.4 % (0-1); EOSINOPHILS # (AUTO) 0.6 X10'3 (0-0.9); HEMOGLOBIN 8.4 g/dl (12.0-16.0); LYMPHOCYTES # (AUTO) 1.1 X10'3 (1.1-4.8); LYMPHOCYTES % (AUTO) 13.5 % (21-51); MEAN CORPUSCULAR HEMOGLOBIN 32.7 PG (27.0-31.0); MEAN CORPUSCULAR HGB CONC 33.4 g/dL (33.0-36.5); MONOCYTES # (AUTO) 0.9 X10'3 (0-0.9); MONOCYTES % (AUTO) 11.3 % (2-12); NEUTROPHILS # (AUTO) 5.5 X10'3 (1.8-7.7); NEUTROPHILS % (AUTO) 67.8 % (42-75); PLATELET COUNT 386 X10'3 (140-440); RED BLOOD COUNT 2.55 X10'6 (4.20-5.60); RED CELL DISTRIBUTION WIDTH 16.2 % (11.5-14.5); WHITE BLOOD COUNT 8.1 X10'3 (4.5-11.0)
[2019-11-13 06:12] LABS: ALBUMIN 2.7 G/DL (3.4-5.0); ANION GAP 6 (8-16); BLOOD UREA NITROGEN 12 MG/DL (7-18); BUN/CREATININE RATIO 18.2 (6.6-38.0); CALCIUM 8.9 MG/DL (8.5-10.1); CHLORIDE 102 MMOL/L (99-107); CREATININE 0.66 MG/DL (0.40-0.90); GLUCOSE 98 MG/DL (70-104); POTASSIUM 3.9 MMOL/L (3.5-5.1); SODIUM 139 MMOL/L (135-145); eGFR > 90 ML/MIN
--- NOTE | 2019-11-13 06:40 | NUR ---
Patient report given, questions answered and plan of care reviewed with ARY Colin.
[2019-11-13] MEDS: potassium chloride 8mEq ER tablet PO SCH (07:43)
[2019-11-13] MEDS: duloxetine 30mg CAPSULE.DR PO SCH (07:43)
[2019-11-13] MEDS: oxyCODONE/APAP 10/325mg tablet PO PRN ×4 (07:43→19:55)
[2019-11-13] MEDS: furosemide 20MG tablet PO SCH (07:43)
[2019-11-13 07:50] LABS: ANISOCYTOSIS 1+; PLATELET ESTIMATE NORMAL; POLYCHROMASIA 1+; TOTAL CELLS COUNTED 100
[2019-11-13 07:51] LABS: LARGE PLATELETS FEW
[2019-11-13] MEDS: HYDROmorphone inj. 0.5 MG/0.5 ML DISP.SYRIN IV PRN ×4 (09:56→21:46)
[2019-11-13 10:00] VITALS: BP 147/79
--- NOTE | 2019-11-13 12:08 | NUR ---
Initial: Pt admit w/ drainage from recent MANDY site requiring wound vac per MD note. Pt seen by DELON and drinks premier proteins at home and eating well prior admit receiving chocolate ensure puddings at dinner meeting healing needs. Ensure puddings at dinner added again this admit in addition to ensure high protein TIDWM given pt ONS acceptance prior admit and PO 100% avg heart healthy meals thus far. DELON d/w RN regarding MVI for wound healing needs. LBM 11/12. Will continue to monitor for additional protein needs. Rec: 1. continue heart healthy diet 2. ensure high protein TIDWM pending MD verification; chocolate ensure puddings at dinner 3. bowel care as needed 4. MVI for wound healing 5. wt per rx Addendum: 11/13/19 at [address] Amended: Links added.
[2019-11-13] MEDS: lactose-reduced food (Ensure High Protein) 237ml bottle PO SCH ×2 (13:00→18:57)
[2019-11-13 18:00] VITALS: BP 168/98
--- NOTE | 2019-11-13 18:20 | NUR ---
Received patient report from ARY Colin. Assumed patient care.
[2019-11-13 22:00] VITALS: BP 130/73
[2019-11-14] MEDS: oxyCODONE/APAP 10/325mg tablet PO PRN ×6 (00:50→21:59)
[2019-11-14] MEDS: HYDROmorphone inj. 0.5 MG/0.5 ML DISP.SYRIN IV PRN ×6 (02:38→23:54)
[2019-11-14 05:05] LABS: BASOPHILS % (AUTO) 0.6 % (0-1); EOSINOPHILS # (AUTO) 0.6 X10'3 (0-0.9); EOSINOPHILS % (AUTO) 7.9 % (0-6); HEMATOCRIT 24.1 % (35.0-45.0); HEMOGLOBIN 8.1 g/dl (12.0-16.0); LYMPHOCYTES # (AUTO) 1.2 X10'3 (1.1-4.8); LYMPHOCYTES % (AUTO) 16.1 % (21-51); MEAN CORPUSCULAR HEMOGLOBIN 33.2 PG (27.0-31.0); MEAN CORPUSCULAR HGB CONC 33.6 g/dL (33.0-36.5); MEAN CORPUSCULAR VOLUME 98.8 FL (78-98); MEAN PLATELET VOLUME 7.1 FL (7.4-10.4); MONOCYTES % (AUTO) 13.6 % (2-12); NEUTROPHILS # (AUTO) 4.6 X10'3 (1.8-7.7); NEUTROPHILS % (AUTO) 61.8 % (42-75); PLATELET COUNT 387 X10'3 (140-440); RED BLOOD COUNT 2.44 X10'6 (4.20-5.60); RED CELL DISTRIBUTION WIDTH 16.4 % (11.5-14.5); WHITE BLOOD COUNT 7.5 X10'3 (4.5-11.0)
[2019-11-14 05:19] LABS: ALBUMIN 2.5 G/DL (3.4-5.0); ANION GAP 7 (8-16); BLOOD UREA NITROGEN 18 MG/DL (7-18); BUN/CREATININE RATIO 23.7 (6.6-38.0); CALCIUM 8.6 MG/DL (8.5-10.1); CHLORIDE 105 MMOL/L (99-107); CREATININE 0.76 MG/DL (0.40-0.90); GLUCOSE 102 MG/DL (70-104); POTASSIUM 3.9 MMOL/L (3.5-5.1); SODIUM 142 MMOL/L (135-145); TOTAL CARBON DIOXIDE 30.2 MMOL/L (24-32); eGFR 81 ML/MIN
[2019-11-14 06:00] VITALS: BP 124/64
--- NOTE | 2019-11-14 06:04 | NUR ---
Patient report given, questions answered and plan of care reviewed with ARY Mendoza.
--- NOTE | 2019-11-14 06:30 | NUR ---
Patient in room ORTHO 4024. I have received report from Elly and had the opportunity to ask questions and assume patient care.
[2019-11-14 06:41] LABS: ANISOCYTOSIS 1+; NUCLEATED RED BLOOD CELLS 1 /100WBC (0-0); PLATELET ESTIMATE NORMAL; TOTAL CELLS COUNTED 100
[2019-11-14 06:42] LABS: POLYCHROMASIA 1+
[2019-11-14] MEDS: furosemide 20MG tablet PO SCH (07:20)
[2019-11-14] MEDS: duloxetine 30mg CAPSULE.DR PO SCH (07:20)
[2019-11-14] MEDS: potassium chloride 8mEq ER tablet PO SCH (07:20)
[2019-11-14] MEDS: lactose-reduced food (Ensure High Protein) 237ml bottle PO SCH ×3 (08:00→18:01)
[2019-11-14 10:00] VITALS: BP 180/82
[2019-11-14 18:00] VITALS: BP 141/80
--- NOTE | 2019-11-14 18:15 | NUR ---
Received patient report from ARY Mendoza.
--- NOTE | 2019-11-14 18:19 | NUR ---
Problems reprioritized. Patient report given, questions answered & plan of care reviewed with
[2019-11-14 22:00] VITALS: BP 120/46
[2019-11-15] MEDS: oxyCODONE/APAP 10/325mg tablet PO PRN ×6 (02:00→21:52)
[2019-11-15] MEDS: HYDROmorphone inj. 0.5 MG/0.5 ML DISP.SYRIN IV PRN ×5 (03:58→20:05)
[2019-11-15 06:00] VITALS: BP 127/71
[2019-11-15 06:12] LABS: BASOPHILS % (AUTO) 0.5 % (0-1); EOSINOPHILS # (AUTO) 0.7 X10'3 (0-0.9); EOSINOPHILS % (AUTO) 8.6 % (0-6); HEMATOCRIT 26.2 % (35.0-45.0); HEMOGLOBIN 8.9 g/dl (12.0-16.0); LYMPHOCYTES # (AUTO) 1.2 X10'3 (1.1-4.8); MEAN CORPUSCULAR HEMOGLOBIN 33.2 PG (27.0-31.0); MEAN CORPUSCULAR HGB CONC 33.8 g/dL (33.0-36.5); MEAN CORPUSCULAR VOLUME 98.1 FL (78-98); MEAN PLATELET VOLUME 7.2 FL (7.4-10.4); MONOCYTES # (AUTO) 0.9 X10'3 (0-0.9); MONOCYTES % (AUTO) 11.6 % (2-12); NEUTROPHILS # (AUTO) 5.2 X10'3 (1.8-7.7); NEUTROPHILS % (AUTO) 64.3 % (42-75); PLATELET COUNT 434 X10'3 (140-440); RED BLOOD COUNT 2.67 X10'6 (4.20-5.60); RED CELL DISTRIBUTION WIDTH 16.8 % (11.5-14.5); WHITE BLOOD COUNT 8.1 X10'3 (4.5-11.0)
--- NOTE | 2019-11-15 06:23 | NUR ---
Patient report given, questions answered and plan of care reviewed with ARY Almaraz.
[2019-11-15 06:36] LABS: ALBUMIN 2.8 G/DL (3.4-5.0); ANION GAP 8 (8-16); BLOOD UREA NITROGEN 17 MG/DL (7-18); BUN/CREATININE RATIO 28.3 (6.6-38.0); CALCIUM 8.7 MG/DL (8.5-10.1); CHLORIDE 105 MMOL/L (99-107); GLUCOSE 100 MG/DL (70-104); POTASSIUM 3.9 MMOL/L (3.5-5.1); SODIUM 144 MMOL/L (135-145); TOTAL CARBON DIOXIDE 30.7 MMOL/L (24-32); eGFR > 90 ML/MIN
[2019-11-15] MEDS: furosemide 20MG tablet PO SCH (07:43)
[2019-11-15] MEDS: duloxetine 30mg CAPSULE.DR PO SCH (07:43)
[2019-11-15] MEDS: potassium chloride 8mEq ER tablet PO SCH (07:43)
[2019-11-15] MEDS: lactose-reduced food (Ensure High Protein) 237ml bottle PO SCH ×3 (08:11→18:32)
[2019-11-15 08:35] LABS: ANISOCYTOSIS 1+; NUCLEATED RED BLOOD CELLS 1 /100WBC (0-0); PLATELET ESTIMATE NORMAL; TOTAL CELLS COUNTED 100
[2019-11-15 08:37] LABS: POLYCHROMASIA 1+
[2019-11-15 09:55] VITALS: BP 156/79
[2019-11-15 18:00] VITALS: BP 136/79
--- NOTE | 2019-11-15 18:34 | NUR ---
Problems reprioritized. Patient report given, questions answered & plan of care reviewed with Sam MCALLISTER.
[2019-11-15 22:00] VITALS: BP 133/67
[2019-11-16] MEDS: HYDROmorphone inj. 0.5 MG/0.5 ML DISP.SYRIN IV PRN ×6 (00:37→21:48)
[2019-11-16] MEDS: oxyCODONE/APAP 10/325mg tablet PO PRN ×6 (03:09→23:44)
[2019-11-16 06:00] VITALS: BP 132/65
[2019-11-16 06:14] LABS: BASOPHILS # (AUTO) 0.1 X10'3 (0-0.2); BASOPHILS % (AUTO) 0.7 % (0-1); EOSINOPHILS # (AUTO) 0.6 X10'3 (0-0.9); LYMPHOCYTES # (AUTO) 1.3 X10'3 (1.1-4.8); LYMPHOCYTES % (AUTO) 16.4 % (21-51); MEAN CORPUSCULAR HEMOGLOBIN 33.1 PG (27.0-31.0); MEAN CORPUSCULAR HGB CONC 33.3 g/dL (33.0-36.5); MEAN CORPUSCULAR VOLUME 99.4 FL (78-98); MEAN PLATELET VOLUME 7.1 FL (7.4-10.4); MONOCYTES # (AUTO) 0.9 X10'3 (0-0.9); MONOCYTES % (AUTO) 11.8 % (2-12); NEUTROPHILS # (AUTO) 4.9 X10'3 (1.8-7.7); NEUTROPHILS % (AUTO) 63.1 % (42-75); PLATELET COUNT 451 X10'3 (140-440); RED BLOOD COUNT 2.72 X10'6 (4.20-5.60); RED CELL DISTRIBUTION WIDTH 16.8 % (11.5-14.5); WHITE BLOOD COUNT 7.8 X10'3 (4.5-11.0)
--- NOTE | 2019-11-16 06:30 | NUR ---
Patient in room ORTHO 4024. I have received report from JUAN MCALLISTER and had the opportunity to ask questions and assume patient care.
[2019-11-16 07:14] LABS: ALBUMIN 2.7 G/DL (3.4-5.0); ANION GAP 6 (8-16); BLOOD UREA NITROGEN 19 MG/DL (7-18); BUN/CREATININE RATIO 28.8 (6.6-38.0); CALCIUM 8.5 MG/DL (8.5-10.1); CHLORIDE 105 MMOL/L (99-107); CREATININE 0.66 MG/DL (0.40-0.90); GLUCOSE 90 MG/DL (70-104); SODIUM 142 MMOL/L (135-145); TOTAL CARBON DIOXIDE 30.6 MMOL/L (24-32); eGFR > 90 ML/MIN
[2019-11-16] MEDS: duloxetine 30mg CAPSULE.DR PO SCH (07:34)
[2019-11-16] MEDS: furosemide 20MG tablet PO SCH (07:34)
[2019-11-16] MEDS: potassium chloride 8mEq ER tablet PO SCH (07:34)
[2019-11-16 07:38] LABS: ANISOCYTOSIS 1+; PLATELET ESTIMATE NORMAL; TOTAL CELLS COUNTED 100
[2019-11-16 07:39] LABS: POIKILOCYTOSIS FEW; POLYCHROMASIA 2+
[2019-11-16] MEDS: lactose-reduced food (Ensure High Protein) 237ml bottle PO SCH ×3 (08:00→18:00)
[2019-11-16 10:00] VITALS: BP 145/72
--- NOTE | 2019-11-16 14:50 | NUR ---
WOUND VAC EDUCATION PROVIDED BY WOUND CARE 1. Patient instructed to call the Wound Center or their Home Health Agency immediately if: * They notice a change in the color or amount of the fluid in the canister. * Their wound looks more red than usual or has a foul smell. * The skin around their wound looks reddened or irritated. * The dressing feels loose or appears to be loose. * They experience any increase or changes in their pain. * The alarm will not turn off. 2. Patient instructed that they should not be disconnected from suction for more than 2 hours at a time. * If they are not able to get the suction back on, they need to remove the dressing and take all of the foam out of the wound. * Then moisten sterile gauze with normal saline and place on/in the wound. * Change the dressing once a day until arrangements have been made to replace the wound vac dressing. 3. Patient instructed to turn the wound vac machine OFF and call 911 or go to the ED immediately if their canister fills rapidly with blood. 4. If any of these occur while in the hospital tell a nurse immediately. Addendum: 11/16/19 at 1451 by Nicolasa Kunz RN Amended: Links added.
[2019-11-16 18:00] VITALS: BP 137/74
--- NOTE | 2019-11-16 18:20 | NUR ---
Problems reprioritized. Patient report given, questions answered & plan of care reviewed with JUAN MCALLISTER.
[2019-11-16 22:00] VITALS: BP 147/87
--- NOTE | 2019-11-17 00:10 | NUR ---
Patient in room ORTHO 4024. I have received report from ARY Vargas and had the opportunity to ask questions and assume patient care.
[2019-11-17] MEDS: HYDROmorphone inj. 0.5 MG/0.5 ML DISP.SYRIN IV PRN ×5 (02:12→23:39)
[2019-11-17] MEDS: oxyCODONE/APAP 10/325mg tablet PO PRN ×5 (03:44→21:12)
[2019-11-17 05:00] VITALS: BP 163/118
--- NOTE | 2019-11-17 06:24 | NUR ---
Problems reprioritized. Patient report given, questions answered & plan of care reviewed with ARY Arias.
[2019-11-17 06:53] LABS: BASOPHILS % (AUTO) 0.7 % (0-1); EOSINOPHILS # (AUTO) 0.7 X10'3 (0-0.9); EOSINOPHILS % (AUTO) 9.1 % (0-6); HEMATOCRIT 27.4 % (35.0-45.0); HEMOGLOBIN 9.1 g/dl (12.0-16.0); LYMPHOCYTES # (AUTO) 1.2 X10'3 (1.1-4.8); LYMPHOCYTES % (AUTO) 16.3 % (21-51); MEAN CORPUSCULAR HEMOGLOBIN 32.4 PG (27.0-31.0); MEAN PLATELET VOLUME 7.1 FL (7.4-10.4); MONOCYTES # (AUTO) 0.8 X10'3 (0-0.9); MONOCYTES % (AUTO) 11.1 % (2-12); NEUTROPHILS # (AUTO) 4.6 X10'3 (1.8-7.7); NEUTROPHILS % (AUTO) 62.8 % (42-75); PLATELET COUNT 477 X10'3 (140-440); WHITE BLOOD COUNT 7.3 X10'3 (4.5-11.0)
[2019-11-17 07:05] LABS: ALBUMIN 2.8 G/DL (3.4-5.0); ANION GAP 6 (8-16); BLOOD UREA NITROGEN 16 MG/DL (7-18); BUN/CREATININE RATIO 25.4 (6.6-38.0); CALCIUM 8.8 MG/DL (8.5-10.1); CHLORIDE 106 MMOL/L (99-107); CREATININE 0.63 MG/DL (0.40-0.90); GLUCOSE 100 MG/DL (70-104); POTASSIUM 3.9 MMOL/L (3.5-5.1); SODIUM 143 MMOL/L (135-145); TOTAL CARBON DIOXIDE 30.9 MMOL/L (24-32); eGFR > 90 ML/MIN
[2019-11-17] MEDS: furosemide 20MG tablet PO SCH (07:55)
[2019-11-17] MEDS: potassium chloride 8mEq ER tablet PO SCH (07:55)
[2019-11-17] MEDS: duloxetine 30mg CAPSULE.DR PO SCH (07:56)
[2019-11-17] MEDS: lactose-reduced food (Ensure High Protein) 237ml bottle PO SCH ×3 (07:58→18:04)
[2019-11-17 10:00] VITALS: BP 148/106
--- NOTE | 2019-11-17 13:17 | NUR ---
Pain control needs are assessed. Wound is red and hot in mid section, MD is aware and was at bedside to examine this site. Pt. is using the maximum dose of pain control ordered but has not achieved excellent pain control.
[2019-11-17 17:00] VITALS: BP 147/79
--- NOTE | 2019-11-17 19:00 | NUR ---
Patient in room ORTHO 4024. I have received report from am RN and had the opportunity to ask questions and assume patient care.
[2019-11-18] MEDS: oxyCODONE/APAP 10/325mg tablet PO PRN ×6 (01:21→21:50)
--- NOTE | 2019-11-18 02:00 | NUR ---
Pt appears to be more painful, area around incision site appears more inflamed, with increased redness and edema. attempted to Called Dr. Almazan to ask for Toradol, and he ordered a Dilaudid DIRECT ENTRY MIDWIFE instead. The patient wanted to keep her medication the way it was because she thought the DIRECT ENTRY MIDWIFE would be less effective.
[2019-11-18] MEDS: HYDROmorphone inj. 0.5 MG/0.5 ML DISP.SYRIN IV PRN ×5 (03:33→19:42)
[2019-11-18 06:06] LABS: BASOPHILS # (AUTO) 0.1 X10'3 (0-0.2); BASOPHILS % (AUTO) 0.7 % (0-1); EOSINOPHILS # (AUTO) 0.6 X10'3 (0-0.9); EOSINOPHILS % (AUTO) 4.6 % (0-6); LYMPHOCYTES # (AUTO) 1.3 X10'3 (1.1-4.8); LYMPHOCYTES % (AUTO) 11.1 % (21-51); MEAN CORPUSCULAR HEMOGLOBIN 31.3 PG (27.0-31.0); MEAN CORPUSCULAR HGB CONC 32.3 g/dL (33.0-36.5); MEAN PLATELET VOLUME 7.4 FL (7.4-10.4); MONOCYTES # (AUTO) 1.1 X10'3 (0-0.9); MONOCYTES % (AUTO) 8.8 % (2-12); NEUTROPHILS % (AUTO) 74.8 % (42-75); PLATELET COUNT 567 X10'3 (140-440); RED CELL DISTRIBUTION WIDTH 16.8 % (11.5-14.5)
[2019-11-18 06:27] LABS: ALBUMIN 3.2 G/DL (3.4-5.0); ANION GAP 7 (8-16); BLOOD UREA NITROGEN 19 MG/DL (7-18); BUN/CREATININE RATIO 31.1 (6.6-38.0); CALCIUM 9.6 MG/DL (8.5-10.1); CHLORIDE 103 MMOL/L (99-107); CREATININE 0.61 MG/DL (0.40-0.90); GLUCOSE 102 MG/DL (70-104); SODIUM 139 MMOL/L (135-145); TOTAL CARBON DIOXIDE 28.6 MMOL/L (24-32); eGFR > 90 ML/MIN
--- NOTE | 2019-11-18 06:29 | NUR ---
Received report from Sam MCALLISTER
[2019-11-18 07:07] VITALS: BP 140/68
[2019-11-18] MEDS: duloxetine 30mg CAPSULE.DR PO SCH (07:31)
[2019-11-18] MEDS: furosemide 20MG tablet PO SCH (07:31)
[2019-11-18] MEDS: potassium chloride 8mEq ER tablet PO SCH (07:31)
[2019-11-18] MEDS: lactose-reduced food (Ensure High Protein) 237ml bottle PO SCH ×3 (08:31→18:34)
[2019-11-18 12:19] VITALS: BP 147/77
--- NOTE | 2019-11-18 12:20 | NUR ---
Reassessment: Pt PO 75-100% avg meals and 100% ONS w/ ONS PO fluctuating. LBM 11/16. Will continue to monitor. Rec: 1. continue heart healthy diet 2. ensure high protein TIDWM pending MD verification; chocolate ensure puddings at dinner 3. bowel care as needed 4. MVI for wound healing 5. wt per rx Addendum: 11/18/19 at [address] Amended: Links added.
[2019-11-18 18:00] VITALS: BP 124/70
--- NOTE | 2019-11-18 18:15 | NUR ---
Received patient report from ARY Grant. Assumed patient care.
--- NOTE | 2019-11-18 18:21 | NUR ---
REPORT GIVEN TO HEMANT MCALLISTER
[2019-11-18 21:31] VITALS: BP 121/63
[2019-11-19] VITALS (23 sets, daily range): BP systolic 107–178; BP diastolic 52–94
[2019-11-19] MEDS: HYDROmorphone inj. 0.5 MG/0.5 ML DISP.SYRIN IV PRN ×5 (00:19→22:51)
[2019-11-19] MEDS: oxyCODONE/APAP 10/325mg tablet PO PRN ×4 (01:55→21:17)
[2019-11-19 04:58] LABS: BASOPHILS # (AUTO) 0.1 X10'3 (0-0.2); BASOPHILS % (AUTO) 0.7 % (0-1); EOSINOPHILS # (AUTO) 0.4 X10'3 (0-0.9); EOSINOPHILS % (AUTO) 4.5 % (0-6); HEMOGLOBIN 9.9 g/dl (12.0-16.0); LYMPHOCYTES # (AUTO) 1.2 X10'3 (1.1-4.8); LYMPHOCYTES % (AUTO) 12.3 % (21-51); MEAN CORPUSCULAR HEMOGLOBIN 31.9 PG (27.0-31.0); MEAN CORPUSCULAR HGB CONC 33.2 g/dL (33.0-36.5); MEAN CORPUSCULAR VOLUME 96.2 FL (78-98); MEAN PLATELET VOLUME 7.1 FL (7.4-10.4); MONOCYTES % (AUTO) 9.7 % (2-12); NEUTROPHILS # (AUTO) 7.1 X10'3 (1.8-7.7); NEUTROPHILS % (AUTO) 72.8 % (42-75); PLATELET COUNT 548 X10'3 (140-440); RED BLOOD COUNT 3.12 X10'6 (4.20-5.60); RED CELL DISTRIBUTION WIDTH 16.2 % (11.5-14.5); WHITE BLOOD COUNT 9.8 X10'3 (4.5-11.0)
[2019-11-19 05:14] LABS: ANION GAP 9 (8-16); BLOOD UREA NITROGEN 17 MG/DL (7-18); BUN/CREATININE RATIO 31.5 (6.6-38.0); C-REACTIVE PROTEIN 16.82 MG/DL (0.0-0.5); CALCIUM 9.4 MG/DL (8.5-10.1); CHLORIDE 105 MMOL/L (99-107); CREATININE 0.54 MG/DL (0.40-0.90); GLUCOSE 102 MG/DL (70-104); POTASSIUM 3.9 MMOL/L (3.5-5.1); SODIUM 141 MMOL/L (135-145); eGFR > 90 ML/MIN
--- NOTE | 2019-11-19 06:13 | NUR ---
Patient report given, questions answered and plan of care reviewed with ARY Colin.
[2019-11-19] MEDS: lactose-reduced food (Ensure High Protein) 237ml bottle PO SCH ×3 (08:00→18:00)
[2019-11-19] MEDS ORDERED: ringers solution, lacted 1,000 ML IV ONE (08:20)
[2019-11-19] MEDS: furosemide 20MG tablet PO SCH (09:26)
[2019-11-19] MEDS: potassium chloride 8mEq ER tablet PO SCH (09:26)
[2019-11-19] MEDS: duloxetine 30mg CAPSULE.DR PO SCH (09:26)
[2019-11-19] MEDS ORDERED: ceFAZolin 1000mg inj ONE ×2 (13:39→16:03)
--- NOTE | 2019-11-19 13:49 | NUR ---
To or via bed, report called to Renato in RR
[2019-11-19] MEDS ORDERED: ringers solution, lacted 1,000 ML IV SCH (13:51)
[2019-11-19] MEDS ORDERED: meperidine/PF 25mg/ml syringe IV PRN ×3 (13:55)
[2019-11-19] MEDS ORDERED: ondansetron/PF 4mg/2ml inj IV PRN ×2 (13:55→17:55)
[2019-11-19] MEDS ORDERED: proCHLORperazine 10 MG/2 ml inj IV PRN (13:55)
[2019-11-19] MEDS ORDERED: morphine 4 MG/ML inj SYRINge IV PRN ×2 (13:55)
[2019-11-19] MEDS ORDERED: neostigmine methylsulfate 1 MG/ML 10ml vial ONE (14:10)
[2019-11-19] MEDS ORDERED: fentaNYL/PF 50MCG/1 ML 2ML syringe ONE (14:10)
[2019-11-19] MEDS ORDERED: MIDAZolam 1mg/ml 10ml vial ONE (14:10)
[2019-11-19] MEDS ORDERED: TRANEXAMIC ACID 1 GM IN NACL,ISO-OS 100 ML IV ONE ×2 (14:20→17:05)
[2019-11-19] MEDS ORDERED: vancomycin 1,000mg inj ONE (14:37)
[2019-11-19] MEDS ORDERED: vancomycin 1,000mg inj TP ONE (14:45)
[2019-11-19] MEDS ORDERED: tobramycin sulfate 1.2gm vial TP ONE ×2 (14:45→14:55)
[2019-11-19] MEDS ORDERED: cefazolin/dext.iso 2gm/100ml 100 ML IV ONE (14:55)
[2019-11-19] MEDS ORDERED: ceFAZolin/D5W- 1GM premix 50 ML IV ONE (14:55)
[2019-11-19] MEDS ORDERED: diphenhydrAMINE 50 mg/ml inj ONE (16:32)
[2019-11-19] MEDS ORDERED: propofol inj 20 ML IV ONE (16:32)
[2019-11-19] MEDS ORDERED: morphine 10mg/ml inj. ONE (17:00)
[2019-11-19] MEDS ORDERED: ketamine 50mg/5ml syringe ONE (17:02)
[2019-11-19 17:15] LABS: APPEARANCE,SYNOVIAL FLUID BLOODY; COLOR,SYNOVIAL FLUID RED
[2019-11-19 17:16] LABS: LYMPHOCYTES,SYNOVIAL FLUID 1 % (0-75); MONOCYTES,SYNOVIAL FLUID 1 % (0-0); NEUTROPHILS,SYNOVIAL FLUID 98 % (0-25); SYN RBC 572500 /CU MM (0); SYN WBC 20750 /CU MM (0-200)
--- NOTE | 2019-11-19 17:34 | NUR ---
Received from OR via ORTHO BED WITH OHTF, accompanied by Anesthesiologist DR GAFFNEY and report given by Anesthesiolgist. PT AWAKE AND ALERT COMPLAINING OF PAIN AT A LEVEL 9. 20 GUAGE PIV R HAND PATENT AND RUNNING LR AT 100 ML/HR, [address] LFA. DRESSING CDI WITH POWDER PACK APPLIED. SCDS ON AND RUNNING. f/C DRAINING CLEAR YELLOW URINE. MOVES ALL EXTREMITIES, PULSES PRESENT, SKIN PINK AND WARM.VITALS STABLE
[2019-11-19] MEDS: ondansetron/PF 4mg/2ml inj IV PRN (17:53)
[2019-11-19] MEDS ORDERED: bisacodyl 10mg suppository rectal RC PRN (17:55)
[2019-11-19] MEDS ORDERED: acetaminophen 325mg tablet PO PRN (17:55)
[2019-11-19] MEDS ORDERED: diphenhydrAMINE 25mg capsule PO PRN ×2 (17:55)
[2019-11-19] MEDS ORDERED: magnesium hydroxide 30ml (MOM) UD suspension PO PRN (17:55)
[2019-11-19 18:10] LABS: HEMATOCRIT 27.4 % (35.0-45.0); HEMOGLOBIN 9.1 g/dl (12.0-16.0); MEAN CORPUSCULAR HEMOGLOBIN 32.2 PG (27.0-31.0); MEAN CORPUSCULAR HGB CONC 33.2 g/dL (33.0-36.5); MEAN CORPUSCULAR VOLUME 97.1 FL (78-98); MEAN PLATELET VOLUME 7.2 FL (7.4-10.4); PLATELET COUNT 563 X10'3 (140-440); RED BLOOD COUNT 2.82 X10'6 (4.20-5.60); RED CELL DISTRIBUTION WIDTH 16.4 % (11.5-14.5); WHITE BLOOD COUNT 11.4 X10'3 (4.5-11.0)
[2019-11-19] MEDS ORDERED: HYDROmorphone inj. 0.5 MG/0.5 ML DISP.SYRIN IV PRN (18:10)
--- NOTE | 2019-11-19 18:10 | NUR ---
Received report from ARY Chadwick in recovery room.
--- NOTE | 2019-11-19 18:10 | NUR ---
Patient report received from ARY Colin.
[2019-11-19] MEDS ORDERED: NORMAL SALINE IV ONE (18:15)
[2019-11-19] MEDS ORDERED: VANCOMYCIN IV ONE (18:15)
[2019-11-19] MEDS: LORazepam 2 mg/ml vial IV PRN ×2 (18:21→18:52)
[2019-11-19 18:24] LABS: ALANINE AMINOTRANSFERASE 70 U/L (12-78); ALBUMIN 2.4 G/DL (3.4-5.0); ALBUMIN/GLOBULIN RATIO 0.7 (1.1-1.5); ALKALINE PHOSPHATASE 115 IU/L (46-116); ANION GAP 6 (8-16); ASPARTATE AMINO TRANSFERASE 53 U/L (10-37); BILIRUBIN,TOTAL 0.4 MG/DL (0.1-1.0); BLOOD UREA NITROGEN 15 MG/DL (7-18); BUN/CREATININE RATIO 29.4 (6.6-38.0); CALCIUM 8.4 MG/DL (8.5-10.1); CHLORIDE 108 MMOL/L (99-107); CREATININE 0.51 MG/DL (0.40-0.90); GLUCOSE 111 MG/DL (70-104); POTASSIUM 4.2 MMOL/L (3.5-5.1); SODIUM 139 MMOL/L (135-145); TOTAL CARBON DIOXIDE 25.3 MMOL/L (24-32); eGFR > 90 ML/MIN
[2019-11-19] MEDS ORDERED: acetaminophen 1,000mg/100ml IV 100 ML IV ONE (18:25)
--- NOTE | 2019-11-19 19:24 | NUR ---
PT AWAKE AND ALERT COMPLAINING OF PAIN AT A LEVEL 5. 20 GUAGE PIV R HAND PATENT AND RUNNING LR AT 100 ML/HR, 22 GUAGE SL LFA, D/CD BY PATIENT, CATH TIP INTACT. DRESSING CDI WITH POWDER PACK APPLIED. SCDS ON AND RUNNING. f/C DRAINING CLEAR YELLOW URINE. MOVES ALL EXTREMITIES, PULSES PRESENT, SKIN PINK AND WARM.VITALS STABLE REPORT GIVEN TO MICHAEL MCALLISTER, TRANSFERRED VIA BED TO PT ROOM.
--- NOTE | 2019-11-19 21:10 | NUR ---
Patient had taken 6600mg of acetaminophen in a last 24hrs. Talked to Dr. Abernathy, he said to continue to give the Percocet .
[2019-11-19] MEDS: sennosides 8.6mg tablet PO SCH (22:54)
[2019-11-20] MEDS: oxyCODONE/APAP 10/325mg tablet PO PRN ×5 (01:17→19:25)
[2019-11-20 02:00] VITALS: BP 112/79
[2019-11-20] MEDS: potassium Cl 20mEq in NS 1,000 ML IV SCH ×4 (03:22→17:52)
[2019-11-20] MEDS: HYDROmorphone inj. 0.5 MG/0.5 ML DISP.SYRIN IV PRN (04:06)
[2019-11-20] MEDS ORDERED: HYDROmorphone inj. 0.5 MG/0.5 ML DISP.SYRIN IV ONE (04:55)
[2019-11-20] MEDS: LORazepam 1 MG tablet PO PRN ×3 (05:44→17:31)
--- NOTE | 2019-11-20 06:17 | NUR ---
Patient report given, questions answered and plan of care reviewed with ARY Colin.
[2019-11-20 06:34] VITALS: BP 168/113
[2019-11-20 06:41] LABS: BASOPHILS # (AUTO) 0.1 X10'3 (0-0.2); BASOPHILS % (AUTO) 1.3 % (0-1); EOSINOPHILS # (AUTO) 0.3 X10'3 (0-0.9); EOSINOPHILS % (AUTO) 3.4 % (0-6); HEMATOCRIT 25.5 % (35.0-45.0); HEMOGLOBIN 8.4 g/dl (12.0-16.0); LYMPHOCYTES # (AUTO) 1.1 X10'3 (1.1-4.8); LYMPHOCYTES % (AUTO) 10.4 % (21-51); MEAN CORPUSCULAR HEMOGLOBIN 31.6 PG (27.0-31.0); MEAN CORPUSCULAR HGB CONC 32.8 g/dL (33.0-36.5); MEAN CORPUSCULAR VOLUME 96.4 FL (78-98); MEAN PLATELET VOLUME 7.5 FL (7.4-10.4); MONOCYTES % (AUTO) 9.5 % (2-12); NEUTROPHILS # (AUTO) 7.9 X10'3 (1.8-7.7); NEUTROPHILS % (AUTO) 75.4 % (42-75); PLATELET COUNT 580 X10'3 (140-440); RED BLOOD COUNT 2.64 X10'6 (4.20-5.60); RED CELL DISTRIBUTION WIDTH 16.5 % (11.5-14.5); WHITE BLOOD COUNT 10.4 X10'3 (4.5-11.0)
[2019-11-20] MEDS: vancomycin/NS 1 GM ADD-VANTAGE 250 ML X 1 DOSE IV SCH ×3 (06:47→06:51)
[2019-11-20 07:00] LABS: ALBUMIN 2.5 G/DL (3.4-5.0); ANION GAP 8 (8-16); BLOOD UREA NITROGEN 16 MG/DL (7-18); BUN/CREATININE RATIO 27.1 (6.6-38.0); CALCIUM 8.8 MG/DL (8.5-10.1); CHLORIDE 104 MMOL/L (99-107); CREATININE 0.59 MG/DL (0.40-0.90); GLUCOSE 127 MG/DL (70-104); POTASSIUM 3.8 MMOL/L (3.5-5.1); SODIUM 138 MMOL/L (135-145); TOTAL CARBON DIOXIDE 26.3 MMOL/L (24-32); eGFR > 90 ML/MIN
[2019-11-20] MEDS: lactose-reduced food (Ensure High Protein) 237ml bottle PO SCH ×3 (08:00→18:00)
[2019-11-20] MEDS: HYDROmorphone 1 mg/ml syringe IV PRN ×4 (08:11→20:30)
[2019-11-20] MEDS: duloxetine 30mg CAPSULE.DR PO SCH (08:12)
[2019-11-20] MEDS: furosemide 20MG tablet PO SCH (08:12)
[2019-11-20] MEDS: potassium chloride 8mEq ER tablet PO SCH (08:12)
[2019-11-20 10:00] VITALS: BP 128/80
--- NOTE | 2019-11-20 14:03 | NUR ---
WOUND VAC EDUCATION PROVIDED BY WOUND CARE 1. Patient instructed to call the Wound Center or their Home Health Agency immediately if: * They notice a change in the color or amount of the fluid in the canister. * Their wound looks more red than usual or has a foul smell. * The skin around their wound looks reddened or irritated. * The dressing feels loose or appears to be loose. * They experience any increase or changes in their pain. * The alarm will not turn off. 2. Patient instructed that they should not be disconnected from suction for more than 2 hours at a time. * If they are not able to get the suction back on, they need to remove the dressing and take all of the foam out of the wound. * Then moisten sterile gauze with normal saline and place on/in the wound. * Change the dressing once a day until arrangements have been made to replace the wound vac dressing. 3. Patient instructed to turn the wound vac machine OFF and call 911 or go to the ED immediately if their canister fills rapidly with blood. 4. If any of these occur while in the hospital tell a nurse immediately. Addendum: 11/20/19 at 1403 by Nicolasa Kunz RN Amended: Links added.
--- NOTE | 2019-11-20 14:48 | NUR ---
Patient's supplying "Premier" protein drink supplement from home. Does not like ensure.
--- NOTE | 2019-11-20 14:48 | NUR ---
F/u: Pt does not like ensures and drinks premier proteins from home per RN. ONS d/c at this time and pt to continue receiving ensure pudding since eating per RN. Addendum: 11/20/19 at [address] Amended: Links added.
[2019-11-20] MEDS: cefazolin/dext.iso 2gm/100ml 100 ML IV SCH (16:42)
[2019-11-20] MEDS: ceFAZolin 1GM/D5W- ADD-VANTAGE 50 ML IV SCH ×2 (17:27→23:55)
[2019-11-20 18:00] VITALS: BP 149/81
[2019-11-20] MEDS ORDERED: VANCOMYCIN LEVEL IV ONE (18:30)
[2019-11-20] MEDS: sennosides 8.6mg tablet PO SCH (19:29)
[2019-11-20 22:00] VITALS: BP 119/75
[2019-11-21] MEDS: cefazolin/dext.iso 2gm/100ml 100 ML IV SCH ×3 (00:23→17:12)
[2019-11-21] MEDS: LORazepam 1 MG tablet PO PRN ×4 (01:27→23:02)
[2019-11-21] MEDS: potassium Cl 20mEq in NS 1,000 ML IV SCH ×2 (01:52→11:23)
[2019-11-21] MEDS: oxyCODONE/APAP 10/325mg tablet PO PRN ×6 (01:59→22:20)
[2019-11-21] MEDS: HYDROmorphone 1 mg/ml syringe IV PRN ×5 (03:06→20:47)
[2019-11-21 05:56] LABS: BASOPHILS # (AUTO) 0.1 X10'3 (0-0.2); BASOPHILS % (AUTO) 0.9 % (0-1); EOSINOPHILS # (AUTO) 0.4 X10'3 (0-0.9); EOSINOPHILS % (AUTO) 4.4 % (0-6); HEMATOCRIT 22.4 % (35.0-45.0); HEMOGLOBIN 7.5 g/dl (12.0-16.0); LYMPHOCYTES # (AUTO) 0.9 X10'3 (1.1-4.8); LYMPHOCYTES % (AUTO) 10.8 % (21-51); MEAN CORPUSCULAR HGB CONC 33.2 g/dL (33.0-36.5); MEAN CORPUSCULAR VOLUME 96.3 FL (78-98); MONOCYTES # (AUTO) 0.8 X10'3 (0-0.9); MONOCYTES % (AUTO) 9.7 % (2-12); NEUTROPHILS # (AUTO) 6.3 X10'3 (1.8-7.7); NEUTROPHILS % (AUTO) 74.2 % (42-75); PLATELET COUNT 530 X10'3 (140-440); RED BLOOD COUNT 2.33 X10'6 (4.20-5.60); WHITE BLOOD COUNT 8.5 X10'3 (4.5-11.0)
[2019-11-21 06:00] VITALS: BP 155/87
--- NOTE | 2019-11-21 06:15 | NUR ---
Patient in room ORTHO 4024. I have received report from JANE RN and had the opportunity to ask questions and assume patient care.
[2019-11-21 06:41] LABS: ALBUMIN 2.3 G/DL (3.4-5.0); ANION GAP 6 (8-16); BLOOD UREA NITROGEN 11 MG/DL (7-18); BUN/CREATININE RATIO 22.9 (6.6-38.0); CALCIUM 8.9 MG/DL (8.5-10.1); CHLORIDE 108 MMOL/L (99-107); CREATININE 0.48 MG/DL (0.40-0.90); GLUCOSE 99 MG/DL (70-104); POTASSIUM 3.8 MMOL/L (3.5-5.1); SODIUM 141 MMOL/L (135-145); TOTAL CARBON DIOXIDE 26.9 MMOL/L (24-32); eGFR > 90 ML/MIN
[2019-11-21 07:30] VITALS: BP 145/80
[2019-11-21] MEDS: lactose-reduced food (Ensure High Protein) 237ml bottle PO SCH (08:00)
[2019-11-21] MEDS: duloxetine 30mg CAPSULE.DR PO SCH (08:34)
[2019-11-21] MEDS: furosemide 20MG tablet PO SCH (08:35)
[2019-11-21] MEDS: potassium chloride 8mEq ER tablet PO SCH (08:35)
[2019-11-21] MEDS: ceFAZolin 1GM/D5W- ADD-VANTAGE 50 ML IV SCH ×2 (08:36→16:12)
--- NOTE | 2019-11-21 11:00 | NUR ---
UNABLE TO GIVE 2GM ANCEF, UNAVAILABLE FROM RX. DANNIEO IS SCHEDULED.
--- NOTE | 2019-11-21 12:08 | NUR ---
Student documentation: I have reviewed all interventions, assessments performed and documented by Jair Alcantara. Student Medication Administration: For this medication-pass time frame, all medication were reviewed, dispensed, administered and documented per hospital policy by Jair Alcantara.
[2019-11-21 15:01] VITALS: BP 138/68
[2019-11-21 18:00] VITALS: BP 126/84
--- NOTE | 2019-11-21 18:15 | NUR ---
Problems reprioritized. Patient report given, questions answered & plan of care reviewed with PILAR MCALLISTER.
[2019-11-21] MEDS ORDERED: potassium CL 10mEq/100ml bag 100 ML IV PRN (20:20)
[2019-11-21] MEDS ORDERED: magnesium 2GM in 50ml NS 50 ML IV PRN (20:20)
[2019-11-21] MEDS ORDERED: potassium Cl 20 mEq SR tablet PO PRN (20:20)
[2019-11-21] MEDS: sennosides 8.6mg tablet PO SCH (20:53)
[2019-11-21] MEDS: lactobacillus rhamnosus 10,000 MMU CELLS/CAPSULE PO SCH (20:53)
[2019-11-21] MEDS: NORMAL SALINE IV SCH (21:27)
[2019-11-21] MEDS: DAPTOMYCIN IV SCH (21:27)
[2019-11-21 22:00] VITALS: BP 154/80
[2019-11-21] MEDS ORDERED: magnesium 2GM in 50ml NS 50 ML IV ONE (22:30)
[2019-11-22] MEDS: HYDROmorphone 1 mg/ml syringe IV PRN ×6 (00:51→22:53)
[2019-11-22] MEDS: rifampin 300mg capsule PO SCH ×4 (02:31→20:39)
[2019-11-22] MEDS: oxyCODONE/APAP 10/325mg tablet PO PRN ×5 (02:32→20:40)
[2019-11-22 06:00] VITALS: BP 153/88
[2019-11-22 06:08] LABS: MAGNESIUM 1.7 MG/DL (1.5-2.4); POTASSIUM 3.4 MMOL/L (3.5-5.1)
--- NOTE | 2019-11-22 06:25 | NUR ---
Patient in room ORTHO 4024. I have received report from PILAR MCALLISTER and had the opportunity to ask questions and assume patient care.
[2019-11-22] MEDS: lactobacillus rhamnosus 10,000 MMU CELLS/CAPSULE PO SCH ×2 (07:16→20:39)
[2019-11-22] MEDS: duloxetine 30mg CAPSULE.DR PO SCH (07:17)
[2019-11-22] MEDS: furosemide 20MG tablet PO SCH (07:18)
[2019-11-22] MEDS: potassium chloride 8mEq ER tablet PO SCH (07:18)
[2019-11-22] MEDS: DAPTOMYCIN IV SCH (07:21)
[2019-11-22] MEDS: NORMAL SALINE IV SCH (07:21)
[2019-11-22 07:30] VITALS: BP 126/69
[2019-11-22] MEDS: LORazepam 1 MG tablet PO PRN ×2 (08:13→18:50)
[2019-11-22 08:59] LABS: BASOPHILS # (AUTO) 0.1 X10'3 (0-0.2); BASOPHILS % (AUTO) 0.9 % (0-1); EOSINOPHILS # (AUTO) 0.6 X10'3 (0-0.9); EOSINOPHILS % (AUTO) 8.4 % (0-6); HEMATOCRIT 24.2 % (35.0-45.0); LYMPHOCYTES # (AUTO) 1.2 X10'3 (1.1-4.8); LYMPHOCYTES % (AUTO) 15.1 % (21-51); MEAN CORPUSCULAR HEMOGLOBIN 31.3 PG (27.0-31.0); MEAN CORPUSCULAR HGB CONC 33.1 g/dL (33.0-36.5); MEAN CORPUSCULAR VOLUME 94.5 FL (78-98); MEAN PLATELET VOLUME 6.6 FL (7.4-10.4); MONOCYTES # (AUTO) 0.8 X10'3 (0-0.9); MONOCYTES % (AUTO) 10.1 % (2-12); NEUTROPHILS % (AUTO) 65.5 % (42-75); PLATELET COUNT 608 X10'3 (140-440); RED BLOOD COUNT 2.56 X10'6 (4.20-5.60); RED CELL DISTRIBUTION WIDTH 16.2 % (11.5-14.5); WHITE BLOOD COUNT 7.7 X10'3 (4.5-11.0)
[2019-11-22 09:51] LABS: PHOSPHORUS 4.1 MG/DL (2.3-4.5)
[2019-11-22 10:00] VITALS: BP 123/69
[2019-11-22] MEDS: metoprolol succinate 25mg (24-HOUR) SR. Tablet PO SCH (10:01)
[2019-11-22] MEDS: aspirin 81mg tab.chew PO SCH ×2 (10:02→20:39)
--- NOTE | 2019-11-22 12:00 | NUR ---
Patient in room ORTHO 4024. I have received report from eHnrry, student nurse, and had the opportunity to ask questions and assume patient care.
--- NOTE | 2019-11-22 12:01 | NUR ---
Student documentation: I have reviewed and agree all interventions, assessments performed and documented by Henrry Alcantara. Student Medication Administration: For this medication-pass time frame, all medication were reviewed, dispensed, administered and documented per hospital policy by Henrry Alcantara.
--- NOTE | 2019-11-22 14:37 | NUR ---
Reassessment: Pt PO 75% avg heart healthy meals receiving ensure puddings at dinner and premier proteins from home likely meeting healing needs. Receiving K replacement PRN on lasix. LBM 2/4 receiving senna. No nutrition concerns at this time. Will continue to monitor. Rec: 1. continue heart healthy diet 2. premier protein from home; chocolate ensure puddings at dinner 3. bowel care as needed 4. MVI for wound healing 5. wt per rx Addendum: 11/22/19 at [address] Amended: Links added.
[2019-11-22 18:00] VITALS: BP 147/71
--- NOTE | 2019-11-22 18:10 | NUR ---
Problems reprioritized. Patient report given, questions answered & plan of care reviewed with TERRENCE MCALLISTER.
--- NOTE | 2019-11-22 18:22 | NUR ---
Patient report given, questions answered & plan of care reviewed with ARY Jha.
[2019-11-22] MEDS ORDERED: VANCOMYCIN LEVEL IV ONE (18:30)
[2019-11-22] MEDS: sennosides 8.6mg tablet PO SCH (20:40)
[2019-11-22 22:03] VITALS: BP 144/90
--- NOTE | 2019-11-22 23:48 | NUR ---
patient wound vac canister was full to 500mL. replaced with new canister and placed old in biohazard.
[2019-11-23] MEDS: oxyCODONE/APAP 10/325mg tablet PO PRN ×6 (01:37→22:09)
[2019-11-23] MEDS: HYDROmorphone 1 mg/ml syringe IV PRN ×5 (03:17→20:10)
[2019-11-23] MEDS: LORazepam 1 MG tablet PO PRN ×4 (03:17→22:09)
[2019-11-23 06:00] VITALS: BP 133/80
[2019-11-23 06:23] LABS: MAGNESIUM 1.4 MG/DL (1.5-2.4); POTASSIUM 3.4 MMOL/L (3.5-5.1)
--- NOTE | 2019-11-23 06:34 | NUR ---
Problems reprioritized. Patient report given, questions answered & plan of care reviewed with ARY Perry.
[2019-11-23] MEDS: NORMAL SALINE IV SCH (08:03)
[2019-11-23] MEDS: DAPTOMYCIN IV SCH (08:03)
--- NOTE | 2019-11-23 08:04 | NUR ---
found red oblong tablet on floor of patient's room
[2019-11-23] MEDS: rifampin 300mg capsule PO SCH ×3 (08:18→20:09)
[2019-11-23] MEDS: potassium Cl 20 mEq SR tablet PO PRN ×3 (08:21→17:55)
[2019-11-23] MEDS: aspirin 81mg tab.chew PO SCH ×2 (08:24→20:09)
[2019-11-23] MEDS: furosemide 20MG tablet PO SCH (08:25)
[2019-11-23] MEDS: duloxetine 30mg CAPSULE.DR PO SCH (08:27)
[2019-11-23] MEDS: potassium chloride 8mEq ER tablet PO SCH (08:28)
[2019-11-23] MEDS: metoprolol succinate 25mg (24-HOUR) SR. Tablet PO SCH (08:29)
[2019-11-23] MEDS: lactobacillus rhamnosus 10,000 MMU CELLS/CAPSULE PO SCH ×2 (08:31→20:09)
[2019-11-23 10:00] VITALS: BP 138/104
--- NOTE | 2019-11-23 11:52 | NUR ---
WOUND VAC EDUCATION PROVIDED BY WOUND CARE 1. Patient instructed to call the Wound Center or their Home Health Agency immediately if: * They notice a change in the color or amount of the fluid in the canister. * Their wound looks more red than usual or has a foul smell. * The skin around their wound looks reddened or irritated. * The dressing feels loose or appears to be loose. * They experience any increase or changes in their pain. * The alarm will not turn off. 2. Patient instructed that they should not be disconnected from suction for more than 2 hours at a time. * If they are not able to get the suction back on, they need to remove the dressing and take all of the foam out of the wound. * Then moisten sterile gauze with normal saline and place on/in the wound. * Change the dressing once a day until arrangements have been made to replace the wound vac dressing. 3. Patient instructed to turn the wound vac machine OFF and call 911 or go to the ED immediately if their canister fills rapidly with blood. 4. If any of these occur while in the hospital tell a nurse immediately. Addendum: 11/23/19 at 1152 by Nicolasa Kunz RN Amended: Links added.
[2019-11-23] MEDS: magnesium Cl slow-release 64mg tablet PO PRN ×2 (13:00→20:09)
[2019-11-23 18:00] VITALS: BP 128/72
[2019-11-23] MEDS: sennosides 8.6mg tablet PO SCH (20:09)
[2019-11-23] MEDS: ondansetron/PF 4mg/2ml inj IV PRN (20:10)
[2019-11-23 22:00] VITALS: BP 126/61
[2019-11-24] MEDS: HYDROmorphone 1 mg/ml syringe IV PRN ×6 (00:12→22:05)
[2019-11-24] MEDS: oxyCODONE/APAP 10/325mg tablet PO PRN ×5 (02:19→20:06)
[2019-11-24] MEDS: LORazepam 1 MG tablet PO PRN ×4 (04:25→22:04)
[2019-11-24 06:00] VITALS: BP 151/81
--- NOTE | 2019-11-24 06:32 | NUR ---
Problems reprioritized. Patient report given, questions answered & plan of care reviewed with ARY Veloz.
[2019-11-24 06:36] LABS: MAGNESIUM 1.5 MG/DL (1.5-2.4); POTASSIUM 3.8 MMOL/L (3.5-5.1)
--- NOTE | 2019-11-24 06:40 | NUR ---
Patient in room ORTHO 4024. I have received report from ARY Brody and had the opportunity to ask questions and assume patient care.
[2019-11-24] MEDS: duloxetine 30mg CAPSULE.DR PO SCH (07:45)
[2019-11-24] MEDS: DAPTOMYCIN IV SCH (07:45)
[2019-11-24] MEDS: metoprolol succinate 25mg (24-HOUR) SR. Tablet PO SCH (07:45)
[2019-11-24] MEDS: NORMAL SALINE IV SCH (07:45)
[2019-11-24] MEDS: aspirin 81mg tab.chew PO SCH ×2 (07:46→20:05)
[2019-11-24] MEDS: furosemide 20MG tablet PO SCH (07:46)
[2019-11-24] MEDS: potassium chloride 8mEq ER tablet PO SCH (07:46)
[2019-11-24] MEDS: lactobacillus rhamnosus 10,000 MMU CELLS/CAPSULE PO SCH ×2 (07:46→20:05)
[2019-11-24] MEDS: rifampin 300mg capsule PO SCH ×3 (07:46→20:05)
[2019-11-24 07:47] LABS: BASOPHILS % (AUTO) 0.8 % (0-1); EOSINOPHILS # (AUTO) 0.9 X10'3 (0-0.9); HEMATOCRIT 24.2 % (35.0-45.0); HEMOGLOBIN 8.1 g/dl (12.0-16.0); MONOCYTES # (AUTO) 0.7 X10'3 (0-0.9); NEUTROPHILS # (AUTO) 3.8 X10'3 (1.8-7.7)
[2019-11-24 07:50] LABS: BASOPHILS # (AUTO) 0.1 X10'3 (0-0.2); EOSINOPHILS % (AUTO) 13.2 % (0-6); LYMPHOCYTES # (AUTO) 1.1 X10'3 (1.1-4.8); LYMPHOCYTES % (AUTO) 16.7 % (21-51); MEAN CORPUSCULAR HEMOGLOBIN 31.4 PG (27.0-31.0); MEAN CORPUSCULAR HGB CONC 33.4 g/dL (33.0-36.5); MEAN PLATELET VOLUME 6.8 FL (7.4-10.4); MONOCYTES % (AUTO) 10.9 % (2-12); NEUTROPHILS % (AUTO) 58.4 % (42-75); PLATELET COUNT 630 X10'3 (140-440); RED BLOOD COUNT 2.57 X10'6 (4.20-5.60); RED CELL DISTRIBUTION WIDTH 15.8 % (11.5-14.5); WHITE BLOOD COUNT 6.6 X10'3 (4.5-11.0)
[2019-11-24 07:58] LABS: ALBUMIN 2.6 G/DL (3.4-5.0); ANION GAP 5 (8-16); BLOOD UREA NITROGEN 9 MG/DL (7-18); BUN/CREATININE RATIO 15.8 (6.6-38.0); CALCIUM 9.6 MG/DL (8.5-10.1); CHLORIDE 105 MMOL/L (99-107); CREATININE 0.57 MG/DL (0.40-0.90); GLUCOSE 104 MG/DL (70-104); SODIUM 141 MMOL/L (135-145); TOTAL CARBON DIOXIDE 31.3 MMOL/L (24-32); eGFR > 90 ML/MIN
[2019-11-24 10:00] VITALS: BP 145/78
[2019-11-24 17:00] VITALS: BP 125/72
--- NOTE | 2019-11-24 18:20 | NUR ---
Problems reprioritized. Patient report given, questions answered & plan of care reviewed with ARY Brody.
[2019-11-24] MEDS: sennosides 8.6mg tablet PO SCH (20:05)
[2019-11-24 22:00] VITALS: BP 138/72
[2019-11-25] MEDS: oxyCODONE/APAP 10/325mg tablet PO PRN ×6 (00:08→22:01)
--- NOTE | 2019-11-25 00:47 | NUR ---
reviewed and agree with SRN assessment findings. Edited as needed.
[2019-11-25] MEDS: HYDROmorphone 1 mg/ml syringe IV PRN ×5 (02:12→19:44)
[2019-11-25] MEDS: LORazepam 1 MG tablet PO PRN ×3 (04:12→17:47)
[2019-11-25 05:00] VITALS: BP 127/78
--- NOTE | 2019-11-25 06:03 | NUR ---
Problems reprioritized. Patient report given, questions answered & plan of care reviewed with ARY Fernández.
[2019-11-25 06:44] LABS: ALBUMIN 2.3 G/DL (3.4-5.0); ANION GAP 8 (8-16); BLOOD UREA NITROGEN 11 MG/DL (7-18); BUN/CREATININE RATIO 18.3 (6.6-38.0); CHLORIDE 107 MMOL/L (99-107); GLUCOSE 95 MG/DL (70-104); MAGNESIUM 1.5 MG/DL (1.5-2.4); POTASSIUM 3.8 MMOL/L (3.5-5.1); SODIUM 142 MMOL/L (135-145); TOTAL CARBON DIOXIDE 27.2 MMOL/L (24-32); eGFR > 90 ML/MIN
--- NOTE | 2019-11-25 06:46 | NUR ---
Patient in room ORTHO 4024B. I have received report from ARY OCAMPO and had the opportunity to ask questions and assume patient care.
[2019-11-25] MEDS: lactobacillus rhamnosus 10,000 MMU CELLS/CAPSULE PO SCH ×2 (07:14→19:44)
[2019-11-25] MEDS: aspirin 81mg tab.chew PO SCH ×2 (07:14→19:44)
[2019-11-25] MEDS: duloxetine 30mg CAPSULE.DR PO SCH (07:15)
[2019-11-25] MEDS: furosemide 20MG tablet PO SCH (07:15)
[2019-11-25] MEDS: potassium chloride 8mEq ER tablet PO SCH (07:15)
[2019-11-25] MEDS: rifampin 300mg capsule PO SCH ×3 (07:15→22:01)
[2019-11-25] MEDS: NORMAL SALINE IV SCH (07:16)
[2019-11-25] MEDS: metoprolol succinate 25mg (24-HOUR) SR. Tablet PO SCH (07:16)
[2019-11-25] MEDS: DAPTOMYCIN IV SCH (07:16)
[2019-11-25 10:00] VITALS: BP 125/83
[2019-11-25 18:00] VITALS: BP 142/71
--- NOTE | 2019-11-25 18:15 | NUR ---
Received patient report from ARY Fernández. Assumed patient care.
--- NOTE | 2019-11-25 18:20 | NUR ---
Problems reprioritized. Patient report given, questions answered & plan of care reviewed with ARY MARCOS.
[2019-11-25] MEDS: sennosides 8.6mg tablet PO SCH (21:00)
[2019-11-25 22:00] VITALS: BP 130/69
[2019-11-26] MEDS: HYDROmorphone 1 mg/ml syringe IV PRN ×3 (00:10→10:25)
[2019-11-26] MEDS: LORazepam 1 MG tablet PO PRN (00:10)
--- NOTE | 2019-11-26 02:05 | NUR ---
0130 RC'D CALL FROM TELE, PATIENT HAD AN EPISODE WHERE HER HEART RATE DROPPED INTO THE 30'S AND THEN BACK UP INTO THE 80'S WHERE IT STAYED, BUT LOOKED THOUGH SHE HAD A BLOCK. VITAL SIGNS AND EKG DONE. B/P 141/74, HR 86 AND EKG NORMAL. NOTED PATIENT HAVING PERIODS OF APNEA, RC'D ATIVAN AND DILAUDID AT 2400. WILL CHECK [address] ON 02 IF NEEDED
[2019-11-26] MEDS: oxyCODONE/APAP 10/325mg tablet PO PRN ×2 (03:14→08:23)
--- NOTE | 2019-11-26 05:58 | NUR ---
Patient report given, questions answered and plan of care reviewed with ARY Fernández.
[2019-11-26 06:00] VITALS: BP 129/80
--- NOTE | 2019-11-26 06:42 | NUR ---
Patient in room ORTHO 4024B. I have received report from ARY MARCOS and had the opportunity to ask questions and assume patient care.
[2019-11-26] MEDS: aspirin 81mg tab.chew PO SCH ×2 (08:19→19:12)
[2019-11-26] MEDS: duloxetine 30mg CAPSULE.DR PO SCH (08:20)
[2019-11-26] MEDS: furosemide 20MG tablet PO SCH (08:20)
[2019-11-26] MEDS: lactobacillus rhamnosus 10,000 MMU CELLS/CAPSULE PO SCH ×2 (08:20→19:12)
[2019-11-26] MEDS: potassium chloride 8mEq ER tablet PO SCH (08:20)
[2019-11-26] MEDS: rifampin 300mg capsule PO SCH ×3 (08:20→21:19)
[2019-11-26] MEDS: metoprolol succinate 25mg (24-HOUR) SR. Tablet PO SCH (08:22)
[2019-11-26] MEDS: DAPTOMYCIN IV SCH (08:23)
[2019-11-26] MEDS: NORMAL SALINE IV SCH (08:23)
[2019-11-26 08:40] LABS: ALBUMIN 2.9 G/DL (3.4-5.0); ANION GAP 6 (8-16); BLOOD UREA NITROGEN 12 MG/DL (7-18); CALCIUM 9.9 MG/DL (8.5-10.1); CHLORIDE 104 MMOL/L (99-107); GLUCOSE 116 MG/DL (70-104); SODIUM 140 MMOL/L (135-145); TOTAL CARBON DIOXIDE 29.6 MMOL/L (24-32); eGFR > 90 ML/MIN
[2019-11-26 08:42] LABS: BASOPHILS # (AUTO) 0.1 X10'3 (0-0.2); LYMPHOCYTES # (AUTO) 1.5 X10'3 (1.1-4.8)
[2019-11-26 08:44] LABS: BASOPHILS % (AUTO) 1.1 % (0-1); EOSINOPHILS # (AUTO) 1.3 X10'3 (0-0.9); EOSINOPHILS % (AUTO) 13.8 % (0-6); HEMATOCRIT 28.3 % (35.0-45.0); HEMOGLOBIN 9.3 g/dl (12.0-16.0); LYMPHOCYTES % (AUTO) 16.9 % (21-51); MEAN CORPUSCULAR HEMOGLOBIN 30.7 PG (27.0-31.0); MEAN CORPUSCULAR HGB CONC 32.9 g/dL (33.0-36.5); MEAN CORPUSCULAR VOLUME 93.1 FL (78-98); MEAN PLATELET VOLUME 6.9 FL (7.4-10.4); MONOCYTES # (AUTO) 0.9 X10'3 (0-0.9); MONOCYTES % (AUTO) 10.5 % (2-12); NEUTROPHILS # (AUTO) 5.2 X10'3 (1.8-7.7); NEUTROPHILS % (AUTO) 57.7 % (42-75); PLATELET COUNT 810 X10'3 (140-440); RED BLOOD COUNT 3.04 X10'6 (4.20-5.60); RED CELL DISTRIBUTION WIDTH 16.7 % (11.5-14.5); WHITE BLOOD COUNT 9.1 X10'3 (4.5-11.0)
[2019-11-26 10:00] VITALS: BP 138/79
[2019-11-26] MEDS ORDERED: oxyCODONE IR 5mg (immed. release) tablet PO PRN (10:00)
[2019-11-26] MEDS: oxyCODONE IR 5mg (immed. release) tablet PO PRN ×2 (13:16→19:12)
[2019-11-26] MEDS: HYDROmorphone inj. 0.5 MG/0.5 ML DISP.SYRIN IV PRN ×2 (15:57→23:13)
[2019-11-26 18:00] VITALS: BP 151/83
--- NOTE | 2019-11-26 18:10 | NUR ---
Received patient report from ARY Fernández. Assumed patient care.
--- NOTE | 2019-11-26 18:21 | NUR ---
Problems reprioritized. Patient report given, questions answered & plan of care reviewed with ARY MARCOS.
[2019-11-26] MEDS: sennosides 8.6mg tablet PO SCH (21:00)
[2019-11-26] MEDS: ondansetron/PF 4mg/2ml inj IV PRN (21:20)
[2019-11-26 22:00] VITALS: BP 128/82
[2019-11-27] MEDS: oxyCODONE IR 5mg (immed. release) tablet PO PRN ×2 (01:26→08:09)
--- NOTE | 2019-11-27 06:00 | NUR ---
I have received report from Elly MCALLISTER and had the opportunity to ask questions and assume patient care.
--- NOTE | 2019-11-27 06:19 | NUR ---
Patient report given, questions answered and plan of care reviewed with ARY Marley.
[2019-11-27] MEDS: DAPTOMYCIN IV SCH (08:07)
[2019-11-27] MEDS: furosemide 20MG tablet PO SCH (08:07)
[2019-11-27] MEDS: NORMAL SALINE IV SCH (08:07)
[2019-11-27] MEDS: potassium chloride 8mEq ER tablet PO SCH (08:07)
[2019-11-27] MEDS: duloxetine 30mg CAPSULE.DR PO SCH (08:07)
[2019-11-27] MEDS: lactobacillus rhamnosus 10,000 MMU CELLS/CAPSULE PO SCH (08:07)
[2019-11-27] MEDS: rifampin 300mg capsule PO SCH (08:07)
[2019-11-27] MEDS: metoprolol succinate 25mg (24-HOUR) SR. Tablet PO SCH (08:07)
[2019-11-27] MEDS: aspirin 81mg tab.chew PO SCH (08:07)
[2019-11-27 11:15] LABS: BASOPHILS # (AUTO) 0.1 X10'3 (0-0.2); EOSINOPHILS # (AUTO) 0.9 X10'3 (0-0.9); HEMOGLOBIN 9.9 g/dl (12.0-16.0); LYMPHOCYTES # (AUTO) 1.2 X10'3 (1.1-4.8); MEAN PLATELET VOLUME 6.9 FL (7.4-10.4)
[2019-11-27 11:16] LABS: BASOPHILS % (AUTO) 0.9 % (0-1); EOSINOPHILS % (AUTO) 9.3 % (0-6); HEMATOCRIT 30.5 % (35.0-45.0); MEAN CORPUSCULAR HEMOGLOBIN 29.8 PG (27.0-31.0); MEAN CORPUSCULAR HGB CONC 32.4 g/dL (33.0-36.5); MONOCYTES # (AUTO) 0.9 X10'3 (0-0.9); MONOCYTES % (AUTO) 10.1 % (2-12); NEUTROPHILS # (AUTO) 6.2 X10'3 (1.8-7.7); NEUTROPHILS % (AUTO) 66.7 % (42-75); PLATELET COUNT 726 X10'3 (140-440); RED BLOOD COUNT 3.31 X10'6 (4.20-5.60); RED CELL DISTRIBUTION WIDTH 17.2 % (11.5-14.5); WHITE BLOOD COUNT 9.3 X10'3 (4.5-11.0)
[2019-11-27 11:23] LABS: ALBUMIN 2.9 G/DL (3.4-5.0); ANION GAP 7 (8-16); BLOOD UREA NITROGEN 10 MG/DL (7-18); BUN/CREATININE RATIO 15.4 (6.6-38.0); CALCIUM 9.9 MG/DL (8.5-10.1); CHLORIDE 104 MMOL/L (99-107); CREATININE 0.65 MG/DL (0.40-0.90); GLUCOSE 112 MG/DL (70-104); SODIUM 140 MMOL/L (135-145); TOTAL CARBON DIOXIDE 28.9 MMOL/L (24-32); eGFR > 90 ML/MIN
[2019-11-27] MEDS ORDERED: RIFA300C4 PO (12:02)
[2019-11-27 14:37] LABS: ANISOCYTOSIS 1+; HYPOCHROMASIA 1+; PLATELET ESTIMATE INCREASED; POLYCHROMASIA 1+; STOMATOCYTES FEW; TEAR DROP CELLS FEW
== END 2019-11-27 13:15 | disposition home IV services (08) | DRG 467 ==
LOC: ER 10:35 → ED HOLD 11:56 → ORTHO 4S 13:41
PROVIDERS: ADMIT Family Medicine; ATTEND Internal Medicine
PROC: 0SPS0JZ Removal of Synthetic Substitute from Left Hip Joint, Femoral Surface, Open Approach (ICD-10-PCS; 2019-11-19)
PROC: 0SBB0ZZ Excision of Left Hip Joint, Open Approach (ICD-10-PCS; 2019-11-19)
PROC: 3E0102A Introduction of Anti-Infective Envelope into Subcutaneous Tissue, Open Approach (ICD-10-PCS; 2019-11-19)
PROC: 0SRS0JZ Replacement of Left Hip Joint, Femoral Surface with Synthetic Substitute, Open Approach (ICD-10-PCS; principal; 2019-11-19 14:10)
PROC: 02HV33Z Insertion of Infusion Device into Superior Vena Cava, Percutaneous Approach (ICD-10-PCS; 2019-11-20)
PROC: B548ZZA Ultrasonography of Superior Vena Cava, Guidance (ICD-10-PCS; 2019-11-20)
DX: T84.52XA Infection and inflammatory reaction due to internal left hip prosthesis, initial encounter (principal); D62 Acute posthemorrhagic anemia; L76.22 Postprocedural hemorrhage of skin and subcutaneous tissue following other procedure; Z68.41 Body mass index [BMI] 40.0-44.9, adult; E66.01 Morbid (severe) obesity due to excess calories; S70.02XA Contusion of left hip, initial encounter; E06.3 Autoimmune thyroiditis; S70.12XA Contusion of left thigh, initial encounter; F41.9 Anxiety disorder, unspecified; K21.9 Gastro-esophageal reflux disease without esophagitis; Y83.1 Surgical operation with implant of artificial internal device as the cause of abnormal reaction of the patient, or of later complication, without mention of misadventure at the time of the procedure; Z96.642 Presence of left artificial hip joint; E05.00 Thyrotoxicosis with diffuse goiter without thyrotoxic crisis or storm; Z79.899 Other long term (current) drug therapy; Z87.891 Personal history of nicotine dependence; Z90.49 Acquired absence of other specified parts of digestive tract; Z98.51 Tubal ligation status
CPT/HCPCS: 36573; 99285; Z7506; Z7508; 36415; 76937; 80048; 80053; 80202; 83735; 84100; 84132; 85025; 85027; 85651; 86140; 86885; 86900; 86901; 86920; 87070; 87075; 87077; 87081; 87186; 89051; 93005; 97116; 97161; 97530; A6223; A6253; A6449; A6454; A7000; C1713; C1758; C1776; G0378; J0131; J0690; J0878; J1170; J1200; J2060; J2250; J2270; J2405; J2704; J2710; J3010; J3260; J3370; J3475; J3480; J7030; J7120

== ENCOUNTER 2019-12-21 10:35 | Outpatient (CLI) | payer OTHER ==
[~2019-12-21 10:35] MED LIST changes: +FURO20TA4 PO; -FURO80TA87 PO; +OXYC15TA88 PO; -POTA10CA44 PO; +POTA8TAB57 PO; +RIFA300C4 PO
[2019-12-21] MEDS ORDERED: LIDOcaine 2% 5ml jelly ONE (11:07)
== END 2019-12-21 11:47 | disposition home or self-care (01) ==
LOC: WOUND CARE 10:35
PROVIDERS: ATTEND Surgery
DX: T81.89XA Other complications of procedures, not elsewhere classified, initial encounter (principal); L98.492 Non-pressure chronic ulcer of skin of other sites with fat layer exposed; L76.34 Postprocedural seroma of skin and subcutaneous tissue following other procedure; E05.00 Thyrotoxicosis with diffuse goiter without thyrotoxic crisis or storm; K21.9 Gastro-esophageal reflux disease without esophagitis; E66.01 Morbid (severe) obesity due to excess calories; M19.90 Unspecified osteoarthritis, unspecified site; F41.9 Anxiety disorder, unspecified; Z79.899 Other long term (current) drug therapy; Z87.891 Personal history of nicotine dependence; Z90.49 Acquired absence of other specified parts of digestive tract; Z96.642 Presence of left artificial hip joint; Z98.51 Tubal ligation status; Z68.42 Body mass index [BMI] 45.0-49.9, adult; Y92.89 Other specified places as the place of occurrence of the external cause; Y83.8 Other surgical procedures as the cause of abnormal reaction of the patient, or of later complication, without mention of misadventure at the time of the procedure
CPT/HCPCS: A6266; G0463

== ENCOUNTER 2019-12-21 13:35 | Outpatient (CLI) | payer OTHER | END 2019-12-21 23:59 | disposition home or self-care (01) | LOC: LAB SPEC 13:35 | PROVIDERS: ATTEND Internal Medicine Interventional Cardiology | DX: Z01.818 Encounter for other preprocedural examination (principal); S91.002A Unspecified open wound, left ankle, initial encounter; R94.31 Abnormal electrocardiogram [ECG] [EKG]; R01.1 Cardiac murmur, unspecified; X58.XXXA Exposure to other specified factors, initial encounter; Y93.89 Activity, other specified; Y92.89 Other specified places as the place of occurrence of the external cause; Y99.8 Other external cause status | CPT/HCPCS: 87070; 87075; 87077; 87186 ==

== ENCOUNTER 2019-12-24 08:30 | Outpatient (CLI) | payer OTHER ==
[2019-12-24] MEDS ORDERED: LIDOcaine 2% 5ml jelly ONE (09:50)
== END 2019-12-24 10:47 | disposition home or self-care (01) ==
LOC: WOUND CARE 08:30 → EDSTATUS 08:30 → WOUND CARE 10:47
PROVIDERS: ATTEND Surgery
DX: T81.89XD Other complications of procedures, not elsewhere classified, subsequent encounter (principal); L98.492 Non-pressure chronic ulcer of skin of other sites with fat layer exposed; L76.34 Postprocedural seroma of skin and subcutaneous tissue following other procedure; E05.00 Thyrotoxicosis with diffuse goiter without thyrotoxic crisis or storm; K21.9 Gastro-esophageal reflux disease without esophagitis; E66.01 Morbid (severe) obesity due to excess calories; M19.90 Unspecified osteoarthritis, unspecified site; F41.9 Anxiety disorder, unspecified; Z79.899 Other long term (current) drug therapy; Z87.891 Personal history of nicotine dependence; Z90.49 Acquired absence of other specified parts of digestive tract; Z96.642 Presence of left artificial hip joint; Y83.8 Other surgical procedures as the cause of abnormal reaction of the patient, or of later complication, without mention of misadventure at the time of the procedure
CPT/HCPCS: A6266; G0463; A4663

== ENCOUNTER 2019-12-27 08:40 | Outpatient (CLI) | payer OTHER ==
[2019-12-27] MEDS ORDERED: LIDOcaine 2% 5ml jelly ONE (09:32)
== END 2019-12-27 10:16 | disposition home or self-care (01) ==
LOC: WOUND CARE 08:40
PROVIDERS: ATTEND Surgery
DX: T81.89XD Other complications of procedures, not elsewhere classified, subsequent encounter (principal); L98.492 Non-pressure chronic ulcer of skin of other sites with fat layer exposed; L76.34 Postprocedural seroma of skin and subcutaneous tissue following other procedure; E05.00 Thyrotoxicosis with diffuse goiter without thyrotoxic crisis or storm; K21.9 Gastro-esophageal reflux disease without esophagitis; E66.01 Morbid (severe) obesity due to excess calories; M19.90 Unspecified osteoarthritis, unspecified site; F41.9 Anxiety disorder, unspecified; Z79.899 Other long term (current) drug therapy; Z87.891 Personal history of nicotine dependence; Z90.49 Acquired absence of other specified parts of digestive tract; Z96.642 Presence of left artificial hip joint; Z68.41 Body mass index [BMI] 40.0-44.9, adult; Y83.8 Other surgical procedures as the cause of abnormal reaction of the patient, or of later complication, without mention of misadventure at the time of the procedure
CPT/HCPCS: A6266; G0463; A4663; A6253

== ENCOUNTER 2019-12-31 08:00 | Outpatient (CLI) | payer OTHER ==
[2019-12-31] MEDS ORDERED: LIDOcaine 2% 5ml jelly ONE (09:28)
== END 2019-12-31 09:54 | disposition home or self-care (01) ==
LOC: WOUND CARE 08:00 → EDSTATUS 08:30 → WOUND CARE 09:54
PROVIDERS: ATTEND Surgery
DX: T81.89XD Other complications of procedures, not elsewhere classified, subsequent encounter (principal); L98.492 Non-pressure chronic ulcer of skin of other sites with fat layer exposed; L76.34 Postprocedural seroma of skin and subcutaneous tissue following other procedure; E05.00 Thyrotoxicosis with diffuse goiter without thyrotoxic crisis or storm; K21.9 Gastro-esophageal reflux disease without esophagitis; E66.01 Morbid (severe) obesity due to excess calories; M19.90 Unspecified osteoarthritis, unspecified site; F41.9 Anxiety disorder, unspecified; Z79.899 Other long term (current) drug therapy; Z87.891 Personal history of nicotine dependence; Z90.49 Acquired absence of other specified parts of digestive tract; Z96.642 Presence of left artificial hip joint; Z98.51 Tubal ligation status; Z68.42 Body mass index [BMI] 45.0-49.9, adult; Y83.8 Other surgical procedures as the cause of abnormal reaction of the patient, or of later complication, without mention of misadventure at the time of the procedure
CPT/HCPCS: A6266; G0463; A4663; A6253

== ENCOUNTER 2020-01-03 08:00 | Outpatient (CLI) | payer OTHER ==
[2020-01-03] MEDS ORDERED: LIDOcaine/PRILOcaine 5gm cream TP ONE (09:05)
== END 2020-01-03 09:28 | disposition home or self-care (01) ==
LOC: WOUND CARE 08:00 → EDSTATUS 08:30 → WOUND CARE 09:28
PROVIDERS: ATTEND Surgery
DX: T81.89XD Other complications of procedures, not elsewhere classified, subsequent encounter (principal); L98.492 Non-pressure chronic ulcer of skin of other sites with fat layer exposed; L76.34 Postprocedural seroma of skin and subcutaneous tissue following other procedure; E05.00 Thyrotoxicosis with diffuse goiter without thyrotoxic crisis or storm; K21.9 Gastro-esophageal reflux disease without esophagitis; E66.01 Morbid (severe) obesity due to excess calories; M19.90 Unspecified osteoarthritis, unspecified site; F41.9 Anxiety disorder, unspecified; Z79.899 Other long term (current) drug therapy; Z87.891 Personal history of nicotine dependence; Z90.49 Acquired absence of other specified parts of digestive tract; Z96.642 Presence of left artificial hip joint; Z98.51 Tubal ligation status; Z68.42 Body mass index [BMI] 45.0-49.9, adult; Y83.8 Other surgical procedures as the cause of abnormal reaction of the patient, or of later complication, without mention of misadventure at the time of the procedure
CPT/HCPCS: G0463

== ENCOUNTER 2020-01-07 17:32 | Inpatient (IN) | payer OTHER ==
[~2020-01-07] VITALS: Ht 175.3 cm; Wt 140.9 kg
[2020-01-07] MEDS ORDERED: normal saline 1000ML IV soln IV ONE (17:35)
[2020-01-07 18:11] LABS: EOSINOPHILS # (AUTO) 0.6 X10'3 (0-0.9); MEAN CORPUSCULAR VOLUME 76.7 FL (78-98); MEAN PLATELET VOLUME 7.3 FL (7.4-10.4)
[2020-01-07] MEDS ORDERED: LACT1CAP74 PO (18:13)
[2020-01-07] MEDS ORDERED: CIPR750T4 PO (18:13)
[2020-01-07] MEDS ORDERED: CYCL-1 PO (18:13)
[2020-01-07] MEDS ORDERED: BACDS PO (18:13)
[2020-01-07 18:14] LABS: HEMATOCRIT 35.1 % (35.0-45.0); HEMOGLOBIN 11.1 g/dl (12.0-16.0); MEAN CORPUSCULAR HEMOGLOBIN 24.3 PG (27.0-31.0); MEAN CORPUSCULAR HGB CONC 31.7 g/dL (33.0-36.5); RED BLOOD COUNT 4.57 X10'6 (4.20-5.60); RED CELL DISTRIBUTION WIDTH 22.4 % (11.5-14.5); WHITE BLOOD COUNT 12.8 X10'3 (4.5-11.0)
[2020-01-07 18:15] LABS: BASOPHILS # (AUTO) 0.1 X10'3 (0-0.2); EOSINOPHILS % (AUTO) 4.5 % (0-6); LYMPHOCYTES # (AUTO) 2.6 X10'3 (1.1-4.8); MONOCYTES # (AUTO) 1.3 X10'3 (0-0.9); MONOCYTES % (AUTO) 9.8 % (2-12); NEUTROPHILS # (AUTO) 8.3 X10'3 (1.8-7.7); NEUTROPHILS % (AUTO) 64.7 % (42-75); PLATELET COUNT 668 X10'3 (140-440)
[2020-01-07] MEDS ORDERED: RIFA300C4 PO (18:15)
[2020-01-07 18:17] LABS: ALANINE AMINOTRANSFERASE 220 U/L (12-78); ALBUMIN 3.1 G/DL (3.4-5.0); ALBUMIN/GLOBULIN RATIO 0.6 (1.1-1.5); ALKALINE PHOSPHATASE 280 IU/L (46-116); ANION GAP 11 (8-16); ASPARTATE AMINO TRANSFERASE 56 U/L (10-37); BILIRUBIN,TOTAL 0.2 MG/DL (0.1-1.0); BLOOD UREA NITROGEN 23 MG/DL (7-18); BUN/CREATININE RATIO 27.7 (6.6-38.0); CALCIUM 9.6 MG/DL (8.5-10.1); CHLORIDE 104 MMOL/L (99-107); CREATININE 0.83 MG/DL (0.40-0.90); GLUCOSE 116 MG/DL (70-104); POTASSIUM 4.2 MMOL/L (3.5-5.1); SODIUM 138 MMOL/L (135-145); TOTAL CARBON DIOXIDE 23.1 MMOL/L (24-32); TOTAL PROTEIN 8.2 G/DL (6.4-8.2); eGFR 73 ML/MIN
--- NOTE | 2020-01-07 18:34 | NUR ---
Patient ambulated to bathroom to provide urine sample via FWW. Gait steady, balanced, patient unable to provide urine sample, patient aware sample is needed per MD order.
[2020-01-07 19:04] LABS: TOTAL CELLS COUNTED 100
[2020-01-07 19:06] LABS: ANISOCYTOSIS 2+; MICROCYTOSIS 1+; PLATELET ESTIMATE INCREASED
[2020-01-07 19:07] LABS: ROULEAUX 1+; TARGET CELLS FEW
[2020-01-07] MEDS ORDERED: magnesium hydroxide 30ml (MOM) UD suspension PO PRN (19:25)
[2020-01-07] MEDS ORDERED: ondansetron/PF 4mg/2ml inj IV PRN (19:25)
[2020-01-07] MEDS ORDERED: mag hydrox/Alum hydrox/simeth 30ml oral suspension PO PRN (19:25)
[2020-01-07] MEDS ORDERED: acetaminophen 325mg tablet PO PRN (19:25)
[2020-01-07] MEDS ORDERED: morphine 2 MG/ML inj. syringe IV PRN (19:25)
[2020-01-07 20:20] LABS: CLARITY,URINE CLEAR (Clear); COLOR,URINE YELLOW (Yellow); GLUCOSE, URINE NEGATIVE (Neg); KETONES,URINE NEGATIVE (Neg); LEUKOCYTE ESTERASE ,URINE NEGATIVE (Neg); NITRITES, URINE NEGATIVE (Neg); OCCULT BLOOD,URINE NEGATIVE (Neg); PH,URINE 5.5 (4.8-8.0); PROTEIN,URINE NEGATIVE (Neg); UROBILINOGEN,URINE 0.2 E.U/dL (0.2-1.0)
[2020-01-07 20:21] LABS: UA COLLECTION TYPE CLN CATCH MIDSTREAM
[2020-01-07] MEDS: VANCOMYCIN 1,500MG inj. 1,500 MG in normal saline 500ml IV soln 500 ML IV SCH (20:26)
[2020-01-07] MEDS: morphine 2 MG/ML inj. syringe IV PRN (20:32)
[2020-01-07 22:00] VITALS: BP 148/94
[2020-01-07] MEDS ORDERED: calcium carbonate 500mg chew tablet PO PRN (22:35)
[2020-01-07 22:49] VITALS: BP 141/64
[2020-01-07] MEDS: dextrose 5%-1/2 normal saline 1,000 ML IV SCH (23:15)
[2020-01-07] MEDS: piperacillin/tazo 4.5gm/100ml 100 ML IV SCH (23:18)
[2020-01-08] MEDS: morphine 2 MG/ML inj. syringe IV PRN ×5 (00:13→20:35)
[2020-01-08] MEDS: VANCOMYCIN 1,500MG inj. 1,500 MG in normal saline 500ml IV soln 500 ML IV SCH ×3 (04:34→20:34)
[2020-01-08] MEDS: dextrose 5%-1/2 normal saline 1,000 ML IV SCH ×3 (05:25→20:44)
[2020-01-08 06:00] VITALS: BP 141/64
[2020-01-08 06:01] LABS: BASOPHILS # (AUTO) 0.1 X10'3 (0-0.2); EOSINOPHILS # (AUTO) 0.3 X10'3 (0-0.9); EOSINOPHILS % (AUTO) 4.3 % (0-6); HEMATOCRIT 29.1 % (35.0-45.0); HEMOGLOBIN 9.4 g/dl (12.0-16.0); LYMPHOCYTES # (AUTO) 1.2 X10'3 (1.1-4.8); LYMPHOCYTES % (AUTO) 17.7 % (21-51); MEAN CORPUSCULAR HGB CONC 32.3 g/dL (33.0-36.5); MEAN CORPUSCULAR VOLUME 77.4 FL (78-98); MEAN PLATELET VOLUME 7.3 FL (7.4-10.4); MONOCYTES # (AUTO) 0.9 X10'3 (0-0.9); MONOCYTES % (AUTO) 13.7 % (2-12); NEUTROPHILS # (AUTO) 4.4 X10'3 (1.8-7.7); NEUTROPHILS % (AUTO) 63.3 % (42-75); PLATELET COUNT 466 X10'3 (140-440); RED BLOOD COUNT 3.77 X10'6 (4.20-5.60); RED CELL DISTRIBUTION WIDTH 22.6 % (11.5-14.5); WHITE BLOOD COUNT 6.9 X10'3 (4.5-11.0)
[2020-01-08 06:15] LABS: ALANINE AMINOTRANSFERASE 442 U/L (12-78); ALBUMIN 2.5 G/DL (3.4-5.0); ALBUMIN/GLOBULIN RATIO 0.7 (1.1-1.5); ALKALINE PHOSPHATASE 334 IU/L (46-116); ANION GAP 8 (8-16); ASPARTATE AMINO TRANSFERASE 536 U/L (10-37); BILIRUBIN,TOTAL 0.4 MG/DL (0.1-1.0); BLOOD UREA NITROGEN 16 MG/DL (7-18); CALCIUM 8.5 MG/DL (8.5-10.1); CHLORIDE 108 MMOL/L (99-107); CREATININE 0.64 MG/DL (0.40-0.90); GLUCOSE 100 MG/DL (70-104); POTASSIUM 3.8 MMOL/L (3.5-5.1); SODIUM 142 MMOL/L (135-145); TOTAL CARBON DIOXIDE 25.7 MMOL/L (24-32); TOTAL PROTEIN 6.3 G/DL (6.4-8.2); eGFR > 90 ML/MIN
--- NOTE | 2020-01-08 06:20 | NUR ---
Problems reprioritized. Patient report given, questions answered & plan of care reviewed with lalit Fernández.
--- NOTE | 2020-01-08 06:35 | NUR ---
Patient in room ORTHO 4012B. I have received report from ARY Young and had the opportunity to ask questions and assume patient care.
[2020-01-08] MEDS: pantoprazole 40mg Tablet.DR PO SCH (07:28)
[2020-01-08] MEDS: enoxaparin 40mg/0.4ml syringe SUBCUT SCH (07:30)
--- NOTE | 2020-01-08 07:38 | NUR ---
pt left floor for sx, report called to recovery
[2020-01-08] MEDS ORDERED: acetylcysteine 200 MG/ml 4ml vial PO SCH (09:15)
[2020-01-08 09:42] LABS: ANISOCYTOSIS 3+; PLATELET ESTIMATE INCREASED
[2020-01-08 09:43] LABS: HYPOCHROMASIA 1+; MICROCYTOSIS 1+; POLYCHROMASIA 1+
[2020-01-08 09:45] LABS: STOMATOCYTES 1+
[2020-01-08 09:46] LABS: TARGET CELLS FEW
[2020-01-08 10:00] VITALS: BP 141/83
[2020-01-08] MEDS ORDERED: pneumococcal 23-VAL P-sac vacc 25 mcg/0.5ml vial IMVAC ONE (10:00)
[2020-01-08 10:18] LABS: ACETAMINOPHEN < 2.0 UG/ML (10-30)
[2020-01-08] MEDS: piperacillin/tazo 4.5gm/100ml 100 ML IV SCH ×3 (11:04→23:37)
[2020-01-08] MEDS: oxyCODONE IR 5mg (immed. release) tablet PO PRN ×2 (12:47→18:58)
[2020-01-08 18:00] VITALS: BP 152/101
--- NOTE | 2020-01-08 18:16 | NUR ---
Patient in room ORTHO 4012B. I have received report from ARY KEBEDE and had the opportunity to ask questions and assume patient care.
[2020-01-08] MEDS ORDERED: VANCOMYCIN LEVEL IV ONE (19:30)
[2020-01-08] MEDS: lactobacillus rhamnosus 10,000 MMU CELLS/CAPSULE PO SCH (20:33)
[2020-01-08 22:00] VITALS: BP 144/90
[2020-01-09] VITALS (23 sets, daily range): BP systolic 90–131; BP diastolic 42–90
[2020-01-09] MEDS: oxyCODONE IR 5mg (immed. release) tablet PO PRN ×2 (01:16→19:31)
[2020-01-09] MEDS: morphine 2 MG/ML inj. syringe IV PRN ×3 (04:17→23:14)
[2020-01-09] MEDS: VANCOMYCIN 1,500MG inj. 1,500 MG in normal saline 500ml IV soln 500 ML IV SCH ×2 (04:18→17:11)
--- NOTE | 2020-01-09 06:25 | NUR ---
Patient in room ORTHO 4012. I have received report from Hannah and had the opportunity to ask questions and assume patient care.
--- NOTE | 2020-01-09 06:29 | NUR ---
Problems reprioritized. Patient report given, questions answered & plan of care reviewed with ARY ESTRELLA.
[2020-01-09 06:32] LABS: BASOPHILS # (AUTO) 0.1 X10'3 (0-0.2); EOSINOPHILS # (AUTO) 0.4 X10'3 (0-0.9); EOSINOPHILS % (AUTO) 5.7 % (0-6); HEMATOCRIT 30.3 % (35.0-45.0); HEMOGLOBIN 9.6 g/dl (12.0-16.0); LYMPHOCYTES # (AUTO) 1.5 X10'3 (1.1-4.8); LYMPHOCYTES % (AUTO) 22.8 % (21-51); MEAN CORPUSCULAR HEMOGLOBIN 24.4 PG (27.0-31.0); MEAN CORPUSCULAR HGB CONC 31.7 g/dL (33.0-36.5); MEAN CORPUSCULAR VOLUME 77.1 FL (78-98); MEAN PLATELET VOLUME 7.4 FL (7.4-10.4); MONOCYTES % (AUTO) 15.5 % (2-12); NEUTROPHILS # (AUTO) 3.6 X10'3 (1.8-7.7); PLATELET COUNT 470 X10'3 (140-440); RED BLOOD COUNT 3.93 X10'6 (4.20-5.60); WHITE BLOOD COUNT 6.5 X10'3 (4.5-11.0)
[2020-01-09 06:37] LABS: ALANINE AMINOTRANSFERASE 367 U/L (12-78); ALBUMIN 2.6 G/DL (3.4-5.0); ALBUMIN/GLOBULIN RATIO 0.7 (1.1-1.5); ALKALINE PHOSPHATASE 294 IU/L (46-116); ANION GAP 7 (8-16); ASPARTATE AMINO TRANSFERASE 195 U/L (10-37); BILIRUBIN,TOTAL 0.2 MG/DL (0.1-1.0); BLOOD UREA NITROGEN 10 MG/DL (7-18); BUN/CREATININE RATIO 16.9 (6.6-38.0); CALCIUM 8.7 MG/DL (8.5-10.1); CHLORIDE 108 MMOL/L (99-107); CREATININE 0.59 MG/DL (0.40-0.90); GLUCOSE 107 MG/DL (70-104); POTASSIUM 3.8 MMOL/L (3.5-5.1); SODIUM 142 MMOL/L (135-145); TOTAL CARBON DIOXIDE 27.4 MMOL/L (24-32); TOTAL PROTEIN 6.6 G/DL (6.4-8.2); eGFR > 90 ML/MIN
[2020-01-09] MEDS: dextrose 5%-1/2 normal saline 1,000 ML IV SCH ×2 (06:48→23:12)
[2020-01-09] MEDS: lactobacillus rhamnosus 10,000 MMU CELLS/CAPSULE PO SCH ×2 (07:25→19:31)
[2020-01-09] MEDS: piperacillin/tazo 4.5gm/100ml 100 ML IV SCH ×2 (07:25→16:48)
[2020-01-09] MEDS: pantoprazole 40mg Tablet.DR PO SCH (07:25)
[2020-01-09] MEDS: enoxaparin 40mg/0.4ml syringe SUBCUT SCH (07:35)
[2020-01-09 10:07] LABS: HYPOCHROMASIA 1+; POLYCHROMASIA FEW; TOTAL CELLS COUNTED 100
[2020-01-09 10:08] LABS: ANISOCYTOSIS 3+; MICROCYTOSIS 1+; PLATELET ESTIMATE INCREASED; SCHISTOCYTES FEW
[2020-01-09] MEDS ORDERED: epiNEPHrine 1 mg/ml inj ONE (10:59)
[2020-01-09] MEDS ORDERED: ketorolac trometh. 30mg/ml inj. ONE (10:59)
[2020-01-09] MEDS ORDERED: cloNIDine hcl/PF 100mcg/ml inj ONE (10:59)
[2020-01-09] MEDS ORDERED: vancomycin 1,000mg inj ONE ×2 (10:59→12:35)
[2020-01-09] MEDS ORDERED: ROPIVAcaine 0.5% (5mg/ml) 30ml vial ONE (10:59)
[2020-01-09] MEDS ORDERED: TRANEXAMIC ACID 1 GM IN NACL,ISO-OS 100 ML IV ONE (11:00)
[2020-01-09] MEDS ORDERED: ringers solution, lacted 1,000 ML IV SCH (11:34)
[2020-01-09] MEDS ORDERED: morphine 2 MG/ML inj. syringe IV PRN (11:35)
[2020-01-09] MEDS ORDERED: hydrALAZINE 20mg/ml inj. IV PRN (11:35)
[2020-01-09] MEDS ORDERED: ondansetron/PF 4mg/2ml inj IV PRN ×2 (11:35→12:40)
[2020-01-09] MEDS ORDERED: labetalol 20mg/4ml (5mg/ml) syringe IV PRN (11:35)
[2020-01-09] MEDS ORDERED: morphine 4 MG/ML inj SYRINge IV PRN (11:35)
[2020-01-09] MEDS ORDERED: fentaNYL/PF 50MCG/1 ML 2ML syringe IV PRN ×2 (11:35)
[2020-01-09] MEDS ORDERED: diphenhydrAMINE 50 mg/ml inj IV PRN (12:40)
[2020-01-09] MEDS ORDERED: albumin (Human) 5% 250ml 500 ML IV ONE (12:54)
--- NOTE | 2020-01-09 14:52 | NUR ---
Received from OR via BED, accompanied by Anesthesiologist DR MAURICIO and report given by Anesthesiologist. PT DROWSY, DENIES PAIN, LEFT HIP W/GAUZE DRSG, WOUND VAC SET AT 125 MMHG TO LCS, HEMOVAC TO BULB SX, GBISON CATHETER TO GRAVITY DRAINAGE W/YELLOW URINE IN TUBING. Addendum: 01/09/20 at 1540 by Terri Winn RN Amended: Links added.
--- NOTE | 2020-01-09 16:07 | NUR ---
Patient in room ORTHO 4012. I have received report from Terri in recovery and had the opportunity to ask questions and assume patient care.
--- NOTE | 2020-01-09 16:32 | NUR ---
Report called to receiving nurse. Transferred via BED, NO Belongings, RECEIVING RN AT BEDSIDE TO RECEIVE PT, BLL, CALL LIGHT GIVEN, SIDE RAILS UP X 2. Special Issues communicated to receiving nurse. YES. Addendum: 01/09/20 at 1640 by Terri Winn RN Amended: Links added.
--- NOTE | 2020-01-09 18:33 | NUR ---
Problems reprioritized. Patient report given, questions answered & plan of care reviewed with Emelina.
--- NOTE | 2020-01-09 18:39 | NUR ---
Patient in room ORTHO 4012. I have received report from Kelly MCALLISTER and had the opportunity to ask questions and assume patient care.
--- NOTE | 2020-01-09 19:20 | NUR ---
asked Dr. Meng about hemogram due to EBL and lower bp with elevated HR. order to check H/H in am and watch tonight. no tele order needed. wound vac settings entered per MD request. notified MD that pt continues to remove oxygen and desat - cont puse ox alarm active and will continue to remind pt to leave oxygen in place. placed pulse ox on right foot to decrease motion and amount of lines to patient.
[2020-01-10] VITALS (13 sets, daily range): BP systolic 103–137; BP diastolic 52–114
[2020-01-10] MEDS: piperacillin/tazo 4.5gm/100ml 100 ML IV SCH ×2 (00:03→07:36)
[2020-01-10] MEDS: VANCOMYCIN 1,500MG inj. 1,500 MG in normal saline 500ml IV soln 500 ML IV SCH ×2 (01:08→09:00)
[2020-01-10] MEDS: oxyCODONE IR 5mg (immed. release) tablet PO PRN ×6 (01:59→23:58)
[2020-01-10] MEDS: morphine 2 MG/ML inj. syringe IV PRN (03:56)
[2020-01-10 05:35] LABS: BASOPHILS # (AUTO) 0.1 X10'3 (0-0.2); BASOPHILS % (AUTO) 0.6 % (0-1); EOSINOPHILS # (AUTO) 0.4 X10'3 (0-0.9); EOSINOPHILS % (AUTO) 3.9 % (0-6); LYMPHOCYTES # (AUTO) 1.3 X10'3 (1.1-4.8); MEAN CORPUSCULAR VOLUME 77.4 FL (78-98); MONOCYTES # (AUTO) 1.3 X10'3 (0-0.9); MONOCYTES % (AUTO) 12.6 % (2-12); NEUTROPHILS # (AUTO) 7.4 X10'3 (1.8-7.7); NEUTROPHILS % (AUTO) 70.9 % (42-75); PLATELET COUNT 450 X10'3 (140-440); RED BLOOD COUNT 2.84 X10'6 (4.20-5.60); RED CELL DISTRIBUTION WIDTH 22.1 % (11.5-14.5); WHITE BLOOD COUNT 10.4 X10'3 (4.5-11.0)
[2020-01-10 05:45] LABS: HEMOGLOBIN 6.8 g/dl (12.0-16.0)
[2020-01-10 05:53] LABS: ALANINE AMINOTRANSFERASE 195 U/L (12-78); ALBUMIN 2.7 G/DL (3.4-5.0); ALBUMIN/GLOBULIN RATIO 0.7 (1.1-1.5); ALKALINE PHOSPHATASE 188 IU/L (46-116); ANION GAP 5 (8-16); ASPARTATE AMINO TRANSFERASE 55 U/L (10-37); BILIRUBIN,TOTAL 0.2 MG/DL (0.1-1.0); BLOOD UREA NITROGEN 14 MG/DL (7-18); BUN/CREATININE RATIO 17.3 (6.6-38.0); CALCIUM 8.2 MG/DL (8.5-10.1); CHLORIDE 104 MMOL/L (99-107); CREATININE 0.81 MG/DL (0.40-0.90); GLUCOSE 120 MG/DL (70-104); POTASSIUM 3.9 MMOL/L (3.5-5.1); SODIUM 136 MMOL/L (135-145); TOTAL CARBON DIOXIDE 26.6 MMOL/L (24-32); TOTAL PROTEIN 6.6 G/DL (6.4-8.2); eGFR 75 ML/MIN
--- NOTE | 2020-01-10 06:05 | NUR ---
Patient in room ORTHO 4012. I have received report from OLY MCALLISTER and had the opportunity to ask questions and assume patient care.
--- NOTE | 2020-01-10 06:17 | NUR ---
Problems reprioritized. Patient report given, questions answered & plan of care reviewed with Yudelka MCALLISTER.
[2020-01-10 06:50] LABS: ANISOCYTOSIS 3+; HYPOCHROMASIA 2+; LARGE PLATELETS FEW; MICROCYTOSIS 1+; PLATELET ESTIMATE INCREASED
[2020-01-10 06:51] LABS: POLYCHROMASIA 1+
[2020-01-10 07:11] LABS: HBSAG SCREEN Negative (Negative); HEPATITIS C ANTIBODY 3.3 s/co ratio (0.0-0.9)
[2020-01-10] MEDS: dextrose 5%-1/2 normal saline 1,000 ML IV SCH ×3 (07:25→21:41)
[2020-01-10] MEDS: pantoprazole 40mg Tablet.DR PO SCH (07:36)
[2020-01-10] MEDS: lactobacillus rhamnosus 10,000 MMU CELLS/CAPSULE PO SCH ×2 (07:36→20:10)
[2020-01-10 07:50] LABS: ISTAT Hct MIX 27 %PCV (35-48); ISTAT O2 SATURATION MIX VENOUS 35 % (60-80); ISTAT SOURCE MIX
[2020-01-10] MEDS: HYDROmorphone 2mg tablet PO PRN ×4 (07:55→22:03)
[2020-01-10] MEDS: enoxaparin 40mg/0.4ml syringe SUBCUT SCH (08:00)
--- NOTE | 2020-01-10 08:27 | NUR ---
PAGER ID: [phone] MESSAGE: [id number] RE: ALVERTO [id number] NEEDS MED REC ADDRESSED PLEASE, PT NEEDS [place] ESPECIALLY.
[2020-01-10] MEDS ORDERED: oxyCODONE IR 5mg (immed. release) tablet PO PRN (08:35)
--- NOTE | 2020-01-10 10:58 | NUR ---
PATIENT REFUSING TO SIGN DISCHARGE PAPERWORK SO SHE LEFT. ALSO DECLINED A BUS PASS OR TAXI RIDE. [facility]. Addendum: 01/10/20 at 1102 by Yudelka Ely RN WRONG PATIENT
[2020-01-10 11:05] LABS: HEMATOCRIT 22.4 % (35.0-45.0); HEMOGLOBIN 7.2 g/dl (12.0-16.0); MEAN CORPUSCULAR HEMOGLOBIN 24.7 PG (27.0-31.0); MEAN CORPUSCULAR VOLUME 77.3 FL (78-98); PLATELET COUNT 414 X10'3 (140-440); RED BLOOD COUNT 2.89 X10'6 (4.20-5.60); RED CELL DISTRIBUTION WIDTH 22.2 % (11.5-14.5); WHITE BLOOD COUNT 10.5 X10'3 (4.5-11.0)
[2020-01-10] MEDS: ciprofloxacin 250mg tablet PO SCH ×2 (11:19→22:03)
[2020-01-10] MEDS: duloxetine 20mg capsule.DR PO SCH (12:03)
[2020-01-10] MEDS: DAPTOMYCIN IV SCH (12:03)
[2020-01-10] MEDS: NORMAL SALINE IV SCH (12:03)
[2020-01-10] MEDS: rifampin 300mg capsule PO SCH ×2 (12:44→20:10)
--- NOTE | 2020-01-10 18:15 | NUR ---
Problems reprioritized. Patient report given, questions answered & plan of care reviewed with TERRENCE MCALLISTER.
[2020-01-10] MEDS ORDERED: lactobacillus rhamnosus 10,000 MMU CELLS/CAPSULE PO SCH (20:00)
[2020-01-11] MEDS: HYDROmorphone 2mg tablet PO PRN ×6 (02:05→22:09)
[2020-01-11] MEDS: oxyCODONE IR 5mg (immed. release) tablet PO PRN ×5 (04:09→21:01)
[2020-01-11 05:38] LABS: BASOPHILS # (AUTO) 0.1 X10'3 (0-0.2); EOSINOPHILS # (AUTO) 0.6 X10'3 (0-0.9); EOSINOPHILS % (AUTO) 5.4 % (0-6); HEMATOCRIT 22.5 % (35.0-45.0); HEMOGLOBIN 7.3 g/dl (12.0-16.0); LYMPHOCYTES # (AUTO) 1.1 X10'3 (1.1-4.8); LYMPHOCYTES % (AUTO) 11.1 % (21-51); MEAN CORPUSCULAR HEMOGLOBIN 25.8 PG (27.0-31.0); MEAN CORPUSCULAR HGB CONC 32.5 g/dL (33.0-36.5); MEAN CORPUSCULAR VOLUME 79.4 FL (78-98); MONOCYTES # (AUTO) 1.4 X10'3 (0-0.9); NEUTROPHILS % (AUTO) 68.5 % (42-75); PLATELET COUNT 338 X10'3 (140-440); RED BLOOD COUNT 2.83 X10'6 (4.20-5.60); RED CELL DISTRIBUTION WIDTH 22.4 % (11.5-14.5); WHITE BLOOD COUNT 10.2 X10'3 (4.5-11.0)
[2020-01-11 05:58] LABS: ALANINE AMINOTRANSFERASE 105 U/L (12-78); ALBUMIN 2.1 G/DL (3.4-5.0); ALBUMIN/GLOBULIN RATIO 0.6 (1.1-1.5); ALKALINE PHOSPHATASE 148 IU/L (46-116); ANION GAP 5 (8-16); ASPARTATE AMINO TRANSFERASE 30 U/L (10-37); BILIRUBIN,TOTAL 0.3 MG/DL (0.1-1.0); BLOOD UREA NITROGEN 3 MG/DL (7-18); BUN/CREATININE RATIO 5.7 (6.6-38.0); CALCIUM 8.4 MG/DL (8.5-10.1); CHLORIDE 108 MMOL/L (99-107); CREATININE 0.53 MG/DL (0.40-0.90); GLUCOSE 122 MG/DL (70-104); POTASSIUM 3.3 MMOL/L (3.5-5.1); SODIUM 141 MMOL/L (135-145); TOTAL CARBON DIOXIDE 27.9 MMOL/L (24-32); TOTAL PROTEIN 5.6 G/DL (6.4-8.2); eGFR > 90 ML/MIN
[2020-01-11 06:00] VITALS: BP 110/20
--- NOTE | 2020-01-11 06:10 | NUR ---
Problems reprioritized. Patient report given, questions answered & plan of care reviewed with ARY Jha.
--- NOTE | 2020-01-11 06:10 | NUR ---
Patient in room ORTHO 4012. I have received report from TERRENCE MCALLISTER and had the opportunity to ask questions and assume patient care.
[2020-01-11] MEDS ORDERED: potassium CL 10mEq/100ml bag 100 ML IV PRN (06:50)
[2020-01-11] MEDS: K and/or MAG REPLACEMENT MC SCH ×3 (06:50→18:59)
[2020-01-11 07:40] LABS: ANISOCYTOSIS 3+; MICROCYTOSIS 1+; PLATELET ESTIMATE NORMAL; POLYCHROMASIA 1+; TARGET CELLS FEW
[2020-01-11] MEDS: lactobacillus rhamnosus 10,000 MMU CELLS/CAPSULE PO SCH ×2 (07:52→21:01)
[2020-01-11] MEDS: pantoprazole 40mg Tablet.DR PO SCH (07:52)
[2020-01-11] MEDS: rifampin 300mg capsule PO SCH ×3 (07:52→21:01)
[2020-01-11] MEDS: potassium Cl 20 mEq SR tablet PO PRN ×3 (07:52→16:58)
[2020-01-11] MEDS: dextrose 5%-1/2 normal saline 1,000 ML IV SCH ×2 (07:52→22:10)
[2020-01-11] MEDS: duloxetine 20mg capsule.DR PO SCH (07:53)
[2020-01-11] MEDS ORDERED: duloxetine 30mg CAPSULE.DR PO SCH (08:00)
[2020-01-11] MEDS ORDERED: VANCOMYCIN LEVEL IV ONE (08:30)
[2020-01-11] MEDS: NORMAL SALINE IV SCH (09:34)
[2020-01-11] MEDS: DAPTOMYCIN IV SCH (09:34)
[2020-01-11] MEDS: ciprofloxacin 250mg tablet PO SCH ×2 (09:34→22:09)
[2020-01-11] MEDS: enoxaparin 40mg/0.4ml syringe SUBCUT SCH (09:37)
[2020-01-11 10:00] VITALS: BP 123/81
[2020-01-11] MEDS ORDERED: HYDROmorphone 1 mg/ml syringe IV PRN (11:15)
[2020-01-11 18:00] VITALS: BP 113/71
--- NOTE | 2020-01-11 18:10 | NUR ---
Problems reprioritized. Patient report given, questions answered & plan of care reviewed with TERRENCE MCALLISTER.
[2020-01-11 22:00] VITALS: BP 115/64
[2020-01-12] MEDS: oxyCODONE IR 5mg (immed. release) tablet PO PRN ×6 (01:00→20:27)
[2020-01-12] MEDS: HYDROmorphone 2mg tablet PO PRN ×8 (02:26→23:33)
[2020-01-12 06:10] VITALS: BP 130/83
[2020-01-12 06:22] LABS: ALANINE AMINOTRANSFERASE 79 U/L (12-78); ALBUMIN/GLOBULIN RATIO 0.6 (1.1-1.5); ALKALINE PHOSPHATASE 123 IU/L (46-116); ANION GAP 6 (8-16); ASPARTATE AMINO TRANSFERASE 22 U/L (10-37); BILIRUBIN,TOTAL 0.2 MG/DL (0.1-1.0); BLOOD UREA NITROGEN 3 MG/DL (7-18); CALCIUM 8.8 MG/DL (8.5-10.1); CHLORIDE 110 MMOL/L (99-107); GLUCOSE 110 MG/DL (70-104); POTASSIUM 3.7 MMOL/L (3.5-5.1); SODIUM 144 MMOL/L (135-145); TOTAL PROTEIN 5.4 G/DL (6.4-8.2); eGFR > 90 ML/MIN
--- NOTE | 2020-01-12 06:26 | NUR ---
Problems reprioritized. Patient report given, questions answered & plan of care reviewed with ARY Agrawal.
--- NOTE | 2020-01-12 06:30 | NUR ---
Patient in room ORTHO 4012. I have received report from Mary Grace Kinney and had the opportunity to ask questions and assume patient care.
[2020-01-12 07:18] LABS: BASOPHILS % (AUTO) 0.6 % (0-1); EOSINOPHILS # (AUTO) 0.6 X10'3 (0-0.9); EOSINOPHILS % (AUTO) 8.1 % (0-6); HEMATOCRIT 23.1 % (35.0-45.0); HEMOGLOBIN 7.4 g/dl (12.0-16.0); LYMPHOCYTES # (AUTO) 0.9 X10'3 (1.1-4.8); LYMPHOCYTES % (AUTO) 11.4 % (21-51); MEAN CORPUSCULAR HEMOGLOBIN 25.3 PG (27.0-31.0); MEAN CORPUSCULAR HGB CONC 31.9 g/dL (33.0-36.5); MEAN CORPUSCULAR VOLUME 79.3 FL (78-98); MEAN PLATELET VOLUME 7.1 FL (7.4-10.4); MONOCYTES # (AUTO) 0.9 X10'3 (0-0.9); MONOCYTES % (AUTO) 12.3 % (2-12); NEUTROPHILS # (AUTO) 5.1 X10'3 (1.8-7.7); NEUTROPHILS % (AUTO) 67.6 % (42-75); PLATELET COUNT 367 X10'3 (140-440); RED BLOOD COUNT 2.92 X10'6 (4.20-5.60); RED CELL DISTRIBUTION WIDTH 22.9 % (11.5-14.5); WHITE BLOOD COUNT 7.6 X10'3 (4.5-11.0)
[2020-01-12] MEDS: K and/or MAG REPLACEMENT MC SCH ×2 (08:00→20:00)
[2020-01-12] MEDS: pantoprazole 40mg Tablet.DR PO SCH (08:05)
[2020-01-12] MEDS: rifampin 300mg capsule PO SCH ×3 (08:06→20:27)
[2020-01-12] MEDS: duloxetine 20mg capsule.DR PO SCH (08:06)
[2020-01-12] MEDS: lactobacillus rhamnosus 10,000 MMU CELLS/CAPSULE PO SCH ×2 (08:06→20:27)
[2020-01-12] MEDS: dextrose 5%-1/2 normal saline 1,000 ML IV SCH ×2 (08:08→19:25)
[2020-01-12] MEDS: enoxaparin 40mg/0.4ml syringe SUBCUT SCH (08:09)
[2020-01-12 10:00] VITALS: BP 143/86
[2020-01-12] MEDS: ciprofloxacin 250mg tablet PO SCH ×2 (10:02→22:00)
[2020-01-12] MEDS: NORMAL SALINE IV SCH (10:08)
[2020-01-12] MEDS: DAPTOMYCIN IV SCH (10:08)
--- NOTE | 2020-01-12 12:12 | NUR ---
Initial: Pt admitted with infected hip wound s/p left MANDY in October. Pt s/p removal of left MANDY hardware with placement of wound VAC. Pt currently on a regular diet with fluctuating PO intake, most recently averaging 25-50% PO intake not meeting nutrient needs. Pt seen at bedside reports fluctuating appetite. Pt reports she generally has two Premier Protein for breakfast, food for lunch, two Premier Protein for dinner, and fruit. Pt has Premier Protein at bedside however pt states she hasn't been able to drink them d/t not being able to get out of bed to reach them. RD provided pt with ONS brought from home. Pt provided with written and verbal protein education and alternative regular menu with RD contact information. Pt well versed about the importance of protein for wound healing. Pt with food preferences that were d/w dietary, see below. Pt denies food allergies, difficulty chewing/swallowing, or constipation/diarrhea. LB 01/10. Will continue to follow. Recommendations: 1) Continue regular diet 2) [place] food preferences, Premier Protein from home okay 3) Ghanaian yogurt TID; strawberries/pineapple with breakfast; lemon Malagasy ice BIDLD 4) Bowel care PRN 5) Wt per rx Addendum: 01/12/20 at [address] Amended: Links added.
[2020-01-12 13:10] LABS: % IRON SATURATION 4 % (11-46); IRON 10 UG/DL (49-151); TOTAL IRON BINDING CAPACITY 225 UG/DL (259-388)
[2020-01-12 18:00] VITALS: BP 125/80
--- NOTE | 2020-01-12 18:18 | NUR ---
Problems reprioritized. Patient report given, questions answered & plan of care reviewed with Lily MCALLISTER.
--- NOTE | 2020-01-12 18:38 | NUR ---
Patient in room ORTHO 4012. I have received report from Tanja MCALLISTER and had the opportunity to ask questions and assume patient care.
[2020-01-12 22:00] VITALS: BP 115/75
[2020-01-13] MEDS: oxyCODONE IR 5mg (immed. release) tablet PO PRN ×6 (00:37→22:02)
[2020-01-13] MEDS: HYDROmorphone 2mg tablet PO PRN ×7 (02:33→21:00)
[2020-01-13] MEDS: dextrose 5%-1/2 normal saline 1,000 ML IV SCH ×2 (05:25→15:25)
[2020-01-13 05:51] LABS: BASOPHILS % (AUTO) 0.4 % (0-1); EOSINOPHILS # (AUTO) 0.6 X10'3 (0-0.9); EOSINOPHILS % (AUTO) 8.7 % (0-6); HEMATOCRIT 22.9 % (35.0-45.0); HEMOGLOBIN 7.3 g/dl (12.0-16.0); LYMPHOCYTES # (AUTO) 1.1 X10'3 (1.1-4.8); LYMPHOCYTES % (AUTO) 15.4 % (21-51); MEAN CORPUSCULAR HEMOGLOBIN 25.3 PG (27.0-31.0); MEAN CORPUSCULAR HGB CONC 31.7 g/dL (33.0-36.5); MEAN CORPUSCULAR VOLUME 79.7 FL (78-98); MEAN PLATELET VOLUME 7.7 FL (7.4-10.4); MONOCYTES # (AUTO) 0.7 X10'3 (0-0.9); MONOCYTES % (AUTO) 9.2 % (2-12); NEUTROPHILS # (AUTO) 4.9 X10'3 (1.8-7.7); NEUTROPHILS % (AUTO) 66.3 % (42-75); PLATELET COUNT 359 X10'3 (140-440); RED BLOOD COUNT 2.88 X10'6 (4.20-5.60); RED CELL DISTRIBUTION WIDTH 23.4 % (11.5-14.5); WHITE BLOOD COUNT 7.4 X10'3 (4.5-11.0)
[2020-01-13 06:00] VITALS: BP 124/77
--- NOTE | 2020-01-13 06:17 | NUR ---
Problems reprioritized. Patient report given, questions answered & plan of care reviewed with Yuni MCALLISTER.
[2020-01-13 06:36] LABS: ALANINE AMINOTRANSFERASE 52 U/L (12-78); ALBUMIN/GLOBULIN RATIO 0.5 (1.1-1.5); ALKALINE PHOSPHATASE 106 IU/L (46-116); ANION GAP 8 (8-16); ASPARTATE AMINO TRANSFERASE 10 U/L (10-37); BILIRUBIN,TOTAL 0.2 MG/DL (0.1-1.0); BLOOD UREA NITROGEN 7 MG/DL (7-18); BUN/CREATININE RATIO 9.7 (6.6-38.0); CALCIUM 8.7 MG/DL (8.5-10.1); CHLORIDE 106 MMOL/L (99-107); CREATININE 0.72 MG/DL (0.40-0.90); GLUCOSE 131 MG/DL (70-104); SODIUM 143 MMOL/L (135-145); TOTAL CARBON DIOXIDE 28.9 MMOL/L (24-32); TOTAL PROTEIN 5.8 G/DL (6.4-8.2); eGFR 86 ML/MIN
[2020-01-13 07:03] LABS: HYPOCHROMASIA 1+; PLATELET ESTIMATE NORMAL; POLYCHROMASIA 1+
[2020-01-13 07:04] LABS: STOMATOCYTES FEW
[2020-01-13] MEDS: K and/or MAG REPLACEMENT MC SCH ×2 (08:00→20:00)
[2020-01-13] MEDS: lactobacillus rhamnosus 10,000 MMU CELLS/CAPSULE PO SCH ×2 (08:00→20:54)
[2020-01-13] MEDS: pantoprazole 40mg Tablet.DR PO SCH (08:34)
[2020-01-13] MEDS: duloxetine 20mg capsule.DR PO SCH (08:35)
[2020-01-13] MEDS: potassium Cl 20 mEq SR tablet PO PRN ×3 (08:35→23:15)
[2020-01-13] MEDS: enoxaparin 40mg/0.4ml syringe SUBCUT SCH (08:36)
[2020-01-13] MEDS: rifampin 300mg capsule PO SCH ×3 (08:36→20:55)
[2020-01-13 10:00] VITALS: BP 121/57
[2020-01-13] MEDS: ciprofloxacin 250mg tablet PO SCH ×2 (10:11→22:01)
[2020-01-13] MEDS: DAPTOMYCIN IV SCH (11:44)
[2020-01-13] MEDS: NORMAL SALINE IV SCH (11:44)
[2020-01-13] MEDS: iron sucrose complex injection 200 MG in normal saline 100ml IV soln 100 ML IV SCH (14:19)
[2020-01-13 18:00] VITALS: BP 137/77
[2020-01-13 22:00] VITALS: BP 133/80
[2020-01-14] MEDS: HYDROmorphone 2mg tablet PO PRN ×5 (00:27→13:15)
[2020-01-14] MEDS: dextrose 5%-1/2 normal saline 1,000 ML IV SCH ×2 (01:25→11:25)
[2020-01-14] MEDS: oxyCODONE IR 5mg (immed. release) tablet PO PRN ×3 (05:20→12:50)
[2020-01-14 05:50] LABS: BASOPHILS % (AUTO) 0.6 % (0-1); EOSINOPHILS # (AUTO) 0.6 X10'3 (0-0.9); EOSINOPHILS % (AUTO) 8.2 % (0-6); HEMATOCRIT 23.4 % (35.0-45.0); HEMOGLOBIN 7.5 g/dl (12.0-16.0); LYMPHOCYTES % (AUTO) 13.3 % (21-51); MEAN CORPUSCULAR HEMOGLOBIN 25.2 PG (27.0-31.0); MEAN CORPUSCULAR HGB CONC 31.9 g/dL (33.0-36.5); MEAN CORPUSCULAR VOLUME 79.1 FL (78-98); MEAN PLATELET VOLUME 7.3 FL (7.4-10.4); MONOCYTES # (AUTO) 0.9 X10'3 (0-0.9); MONOCYTES % (AUTO) 11.7 % (2-12); NEUTROPHILS # (AUTO) 4.8 X10'3 (1.8-7.7); NEUTROPHILS % (AUTO) 66.2 % (42-75); PLATELET COUNT 372 X10'3 (140-440); RED BLOOD COUNT 2.96 X10'6 (4.20-5.60); RED CELL DISTRIBUTION WIDTH 23.4 % (11.5-14.5); WHITE BLOOD COUNT 7.3 X10'3 (4.5-11.0)
[2020-01-14 06:00] VITALS: BP 126/66
[2020-01-14 06:31] LABS: ALANINE AMINOTRANSFERASE 52 U/L (12-78); ALBUMIN 2.2 G/DL (3.4-5.0); ALBUMIN/GLOBULIN RATIO 0.6 (1.1-1.5); ALKALINE PHOSPHATASE 113 IU/L (46-116); ANION GAP 7 (8-16); ASPARTATE AMINO TRANSFERASE 18 U/L (10-37); BILIRUBIN,TOTAL 0.2 MG/DL (0.1-1.0); BLOOD UREA NITROGEN 8 MG/DL (7-18); BUN/CREATININE RATIO 12.7 (6.6-38.0); CHLORIDE 107 MMOL/L (99-107); CREATININE 0.63 MG/DL (0.40-0.90); GLUCOSE 101 MG/DL (70-104); POTASSIUM 3.9 MMOL/L (3.5-5.1); SODIUM 142 MMOL/L (135-145); TOTAL CARBON DIOXIDE 28.3 MMOL/L (24-32); TOTAL PROTEIN 5.9 G/DL (6.4-8.2); eGFR > 90 ML/MIN
[2020-01-14] MEDS: duloxetine 20mg capsule.DR PO SCH (07:01)
[2020-01-14] MEDS: pantoprazole 40mg Tablet.DR PO SCH (07:01)
[2020-01-14] MEDS: lactobacillus rhamnosus 10,000 MMU CELLS/CAPSULE PO SCH (07:01)
[2020-01-14] MEDS: rifampin 300mg capsule PO SCH ×2 (07:01→12:50)
[2020-01-14] MEDS: enoxaparin 40mg/0.4ml syringe SUBCUT SCH (07:02)
[2020-01-14] MEDS: K and/or MAG REPLACEMENT MC SCH (08:00)
[2020-01-14] MEDS: DAPTOMYCIN IV SCH (09:05)
[2020-01-14] MEDS: NORMAL SALINE IV SCH (09:05)
[2020-01-14] MEDS: iron sucrose complex injection 200 MG in normal saline 100ml IV soln 100 ML IV SCH (09:57)
[2020-01-14 10:00] VITALS: BP 131/78
[2020-01-14] MEDS: ciprofloxacin 250mg tablet PO SCH (10:19)
[2020-01-14] MEDS ORDERED: MIDAZolam 1mg/ml 10ml vial IV ONE ×2 (11:51→12:52)
[2020-01-14] MEDS ORDERED: fentaNYL/PF 50MCG/1 ML 2ML syringe IV ONE (11:51)
[2020-01-14] MEDS ORDERED: morphine /PF 1mg/ml 10ml inj. IV ONE (11:51)
--- NOTE | 2020-01-14 14:00 | NUR ---
Received discharge orders from Dr. Mayo and Dr. Francisco Meng to go home today. RX for outpatient Antibiotics (Daptomycin) x 6 weeks via PICC line to be administered daily by Short Stay at [facility] faxed by NYA Castro. PICC line left intact to [facility]. Pt stays she will get PICC dressing change and labs done at Short Stay as ordered by Dr. Francisco Meng. RX for Percocet completed by Cheryl Meng MD given to patient with a copy made and placed in the patient's chart. Pt discharged to a private vehicle with to home.
== END 2020-01-14 14:05 | disposition home or self-care (01) | DRG 467 ==
LOC: ER 17:32 → ED HOLD 19:25 → UNDOADMIN 19:44 → ED HOLD 21:45 → ORTHO 4S 21:45
PROVIDERS: ADMIT Internal Medicine; ATTEND Internal Medicine
PROC: 0SRB0EZ Replacement of Left Hip Joint with Articulating Spacer, Open Approach (ICD-10-PCS; 2020-01-09)
PROC: 0SPB0JZ Removal of Synthetic Substitute from Left Hip Joint, Open Approach (ICD-10-PCS; principal; 2020-01-09 11:58)
PROC: 02HV33Z Insertion of Infusion Device into Superior Vena Cava, Percutaneous Approach (ICD-10-PCS; 2020-01-10)
PROC: B548ZZA Ultrasonography of Superior Vena Cava, Guidance (ICD-10-PCS; 2020-01-10)
PROC: 30243N1 Transfusion of Nonautologous Red Blood Cells into Central Vein, Percutaneous Approach (ICD-10-PCS; 2020-01-10)
DX: T84.52XA Infection and inflammatory reaction due to internal left hip prosthesis, initial encounter (principal); Z68.42 Body mass index [BMI] 45.0-49.9, adult; B96.5 Pseudomonas (aeruginosa) (mallei) (pseudomallei) as the cause of diseases classified elsewhere; D63.8 Anemia in other chronic diseases classified elsewhere; R74.0 Nonspecific elevation of levels of transaminase and lactic acid dehydrogenase [LDH]; E66.01 Morbid (severe) obesity due to excess calories; B19.20 Unspecified viral hepatitis C without hepatic coma; E06.3 Autoimmune thyroiditis; K76.0 Fatty (change of) liver, not elsewhere classified; E03.9 Hypothyroidism, unspecified; Y83.8 Other surgical procedures as the cause of abnormal reaction of the patient, or of later complication, without mention of misadventure at the time of the procedure; Z96.642 Presence of left artificial hip joint; M16.12 Unilateral primary osteoarthritis, left hip; K21.9 Gastro-esophageal reflux disease without esophagitis; Z87.891 Personal history of nicotine dependence; Z90.49 Acquired absence of other specified parts of digestive tract; Y92.89 Other specified places as the place of occurrence of the external cause; Z79.899 Other long term (current) drug therapy
CPT/HCPCS: 36415; 36430; 36573; 71045; 72170; 76700; 76937; 80053; 80202; 80329; 81003; 82607; 82728; 82803; 82948; 83540; 83550; 83605; 83735; 84145; 84443; 85014; 85025; 85027; 85610; 86803; 86885; 86900; 86901; 86920; 87040; 87081; 87340; 93005; 97110; 97112; 97162; 97530; 97535; 99285; A4615; A6550; A7000; C1713; C1776; G0378; J0171; J0735; J0878; J1200; J1650; J1756; J1885; J2250; J2270; J2543; J2795; J3010; J3370; J7030; J7040; J7120; P9016; P9045

== ENCOUNTER → 2020-03-07 | Outpatient (CLI) | payer OTHER ==
[~2020-03-07] MED LIST changes: +CIPR750T4 PO; +CYCL-1 PO; +LACT1CAP74 PO; +OXYC15TA PO; -OXYC15TA88 PO; -RIFA300C4 PO
== END | disposition home or self-care (01) ==
LOC: LAB 12:58
PROVIDERS: ATTEND Internal Medicine Infectious Disease
DX: T84.50XD Infection and inflammatory reaction due to unspecified internal joint prosthesis, subsequent encounter (principal); X58.XXXD Exposure to other specified factors, subsequent encounter
CPT/HCPCS: 36415; 85651; 86140

== ENCOUNTER 2020-03-17 13:50 | Outpatient (CLI) | payer OTHER | END 2020-03-17 23:59 | disposition home or self-care (01) | LOC: LAB 13:50 | PROVIDERS: ATTEND Internal Medicine Infectious Disease | DX: T84.50XD Infection and inflammatory reaction due to unspecified internal joint prosthesis, subsequent encounter (principal); X58.XXXD Exposure to other specified factors, subsequent encounter | CPT/HCPCS: 36415; 85651; 86140 ==

== ENCOUNTER 2020-05-06 09:04 | Inpatient (IN) | payer BC, OTHER ==
[2020-04-28 14:33] LABS: ALBUMIN 3.5 G/DL (3.4-5.0); ALBUMIN/GLOBULIN RATIO 0.8 (1.1-1.5); ALKALINE PHOSPHATASE 135 IU/L (46-116); BASOPHILS # (AUTO) 0.1 X10'3 (0-0.2); BASOPHILS % (AUTO) 1.1 % (0-1); BLOOD UREA NITROGEN 28 MG/DL (7-18); BUN/CREATININE RATIO 36.4 (6.6-38.0); CALCIUM 9.4 MG/DL (8.5-10.1); CHLORIDE 106 MMOL/L (99-107); CREATININE 0.77 MG/DL (0.40-0.90); EOSINOPHILS # (AUTO) 0.5 X10'3 (0-0.9); EOSINOPHILS % (AUTO) 4.8 % (0-6); LYMPHOCYTES # (AUTO) 2.2 X10'3 (1.1-4.8); LYMPHOCYTES % (AUTO) 20.4 % (21-51); MEAN CORPUSCULAR HEMOGLOBIN 21.3 PG (27.0-31.0); MEAN CORPUSCULAR HGB CONC 31.6 g/dL (33.0-36.5); MEAN CORPUSCULAR VOLUME 67.2 FL (78-98); MEAN PLATELET VOLUME 8.7 FL (7.4-10.4); MONOCYTES # (AUTO) 1.1 X10'3 (0-0.9); MONOCYTES % (AUTO) 9.9 % (2-12); NEUTROPHILS # (AUTO) 6.8 X10'3 (1.8-7.7); NEUTROPHILS % (AUTO) 63.8 % (42-75); PRE OP ALT 17 U/L (30-65); PRE OP ANION GAP 9 (8-16); PRE OP AST 10 U/L (10-37); PRE OP BILIRUB, TOTAL 0.2 MG/DL (0.0-1.0); PRE OP GLUCOSE 93 MG/DL (70-104); PRE OP HEMATOCRIT 38.4 % (35.0-45.0); PRE OP HEMOGLOBIN 12.1 g/dL (12.0-16.0); PRE OP PLATELET COUNT 408 X10'3 (140-440); PRE OP POTASSIUM 4.3 MMOL/L (3.4-5.1); PRE OP SODIUM 141 MMOL/L (135-145); RED BLOOD COUNT 5.71 X10'6 (4.20-5.60); TOTAL CARBON DIOXIDE 26.4 MMOL/L (24-32); TOTAL PROTEIN 7.8 G/DL (6.4-8.2); eGFR 79 ML/MIN
[2020-04-28 14:54] LABS: ANISOCYTOSIS 3+; HYPOCHROMASIA 1+; MICROCYTOSIS 2+; PLATELET ESTIMATE NORMAL; POLYCHROMASIA FEW; TARGET CELLS FEW; TEAR DROP CELLS FEW
[2020-05-06] VITALS (18 sets, daily range): BP systolic 103–147; BP diastolic 62–92
[~2020-05-06] VITALS: Ht 175.3 cm; Wt 146.0 kg
[2020-05-06] MEDS: ascorbic acid 500mg tablet PO SCH ×2 (08:00→20:13)
[2020-05-06] MEDS: pantoprazole 40mg Tablet.DR PO SCH ×2 (08:00→20:13)
[2020-05-06] MEDS: gabapentin 300mg capsule PO SCH ×3 (08:00→20:13)
[2020-05-06] MEDS: potassium chloride 8mEq ER tablet PO SCH (08:00)
[2020-05-06] MEDS: furosemide 20MG tablet PO SCH (08:00)
[2020-05-06] MEDS: duloxetine 30mg CAPSULE.DR PO SCH (08:00)
[2020-05-06] MEDS: multivitamins, therapeutics tablet PO SCH (08:00)
[2020-05-06] MEDS: aspirin 325mg tablet PO SCH (08:30)
[~2020-05-06 09:04] MED LIST changes: +ASPI81TA52 PO; -CIPR750T4 PO; +GABA300C PO; +HYDROmorphone inj. 0.5 MG/0.5 ML DISP.SYRIN IV PRN; -LACT1CAP74 PO; +NAPR-1154 PO; +PANT-47 PO; +acetaminophen 325mg tablet PO ONE; +acetaminophen 325mg tablet PO PRN; +bisacodyl 10mg suppository rectal RC PRN; +ceFAZolin 1,000 MG/D5W 50ML IVPB Premixed bag IV ONE; +ceFAZolin 1GM/D5W- ADD-VANTAGE 50 ML IV SCH; +ceFAZolin 2gm in dextrose, iso 50 ML IV ONE; +celeCOXIB 100mg capsule PO ONE; +diphenhydrAMINE 25mg capsule PO PRN; +famotidine 20mg tablet PO ONE; +gabapentin 300mg capsule PO ONE; +magnesium hydroxide 30ml (MOM) UD suspension PO PRN; +metoclopramide 5 mg/ml inj IV ONE; +ondansetron/PF 4mg/2ml inj IV PRN; +oxyCODONE SR 10mg (sust. release) tab -2 tabs (20mg) PO ONE; +tranexamic acid inj. 1,000 MG in normal saline 100 ML IV ONE; +tranexamic acid inj. 1,000 MG in normal saline 100ml IV soln 100 ML IV ONE; +vancomycin 1,500 MG in NS 300ml IV soln IV ONE
[2020-05-06] MEDS ORDERED: ringers solution, lacted 1,000 ML IV SCH (09:56)
[2020-05-06] MEDS ORDERED: meperidine/PF 25mg/ml syringe IV PRN ×3 (10:00)
[2020-05-06] MEDS ORDERED: ondansetron/PF 4mg/2ml inj IV PRN ×2 (10:00→12:35)
[2020-05-06] MEDS ORDERED: morphine 4 MG/ML inj SYRINge IV PRN (10:00)
[2020-05-06] MEDS ORDERED: morphine 2 MG/ML inj. syringe IV PRN (10:00)
[2020-05-06] MEDS ORDERED: proCHLORperazine 10 MG/2 ml inj IV PRN (10:00)
[2020-05-06] MEDS: ringers solution, lacted 1,000 ML IV SCH ×3 (10:20→17:31)
[2020-05-06] MEDS ORDERED: cloNIDine hcl/PF 100mcg/ml inj ONE (11:14)
[2020-05-06] MEDS ORDERED: vancomycin 1,000mg inj ONE (11:14)
[2020-05-06] MEDS ORDERED: epiNEPHrine 1 mg/ml inj ONE (11:14)
[2020-05-06] MEDS ORDERED: ROPIVAcaine 0.5% (5mg/ml) 30ml vial ONE (11:14)
[2020-05-06] MEDS ORDERED: ketorolac trometh. 30mg/ml inj. ONE (11:14)
[2020-05-06] MEDS ORDERED: fentaNYL/PF 50MCG/1 ML 2ML syringe ONE (11:40)
[2020-05-06] MEDS ORDERED: morphine /PF 1mg/ml 10ml inj. ONE (11:41)
[2020-05-06] MEDS ORDERED: MIDAZolam 1mg/ml 10ml vial ONE (11:41)
[2020-05-06] MEDS ORDERED: propofol inj 20 ML IV ONE (12:07)
[2020-05-06] MEDS ORDERED: naloxone 2mg/2ml inj 2 MG in normal saline 500ml IV soln 500 ML IV PRN (12:32)
[2020-05-06] MEDS ORDERED: diphenhydrAMINE 50 mg/ml inj IV PRN (12:35)
[2020-05-06] MEDS ORDERED: diphenhydrAMINE 50 mg/ml inj ONE (13:58)
--- NOTE | 2020-05-06 14:20 | NUR ---
Received from OR via , accompanied by Anesthesiologist DR GASCA and report given by Anesthesiolgist. . PATIENT A&OX4, DENIES PAIN, V/S WNL, 18G PIV RUE , NEUROVASCULAR CHECKS INTACT, , DRESSING TO LEFT HIP ELMER DRESSING CDI W/ COLD POWDER PACK ,SCD ON. F/C DRAINING CLEAR YELLOW URINE. SENSATION T12.
[2020-05-06] MEDS: potassium cl 20mEq in 1/2 NS 1,000 ML IV SCH ×2 (14:55→15:45)
--- NOTE | 2020-05-06 15:20 | NUR ---
PATIENT A&OX4, DENIES PAIN, V/S WNL, 18G PIV RUE , NEUROVASCULAR CHECKS INTACT, , DRESSING TO LEFT HIP ELMER DRESSING CDI W/ COLD POWDER PACK AND IMMOBILIZER,,SCD ON. F/C DRAINING CLEAR YELLOW URINE. SENSATION T12. . PATIENT TAKEN TO ORTHO ROOM WITH ALL BELONGINGS AND HOOKED UP TO MONITORS IN ROOM AND REPORT GIVEN TO [employer] HR REPRESENTATIVE WHO HAS TAKEN OVER PATIENT CARE.BED LOW, CALL LIGHT PRESENT AND VSS.
[2020-05-06] MEDS ORDERED: cefazolin/dext.iso 2gm/100ml 100 ML IV SCH ×2 (16:00)
[2020-05-06] MEDS: ceFAZolin 1GM/D5W- ADD-VANTAGE 50 ML IV SCH (16:48)
--- NOTE | 2020-05-06 18:08 | NUR ---
Problems reprioritized. Patient report given, questions answered & plan of care reviewed with ARY Sanabria.
[2020-05-06] MEDS: oxyCODONE IR 5mg (immed. release) tablet PO PRN (19:23)
--- NOTE | 2020-05-06 19:30 | NUR ---
Received report from Elly MCALLISTER
[2020-05-06] MEDS ORDERED: sennosides 8.6mg tablet PO SCH (21:00)
[2020-05-06] MEDS ORDERED: vancomycin/NS 1 GM ADD-VANTAGE 250 ML IV ONE (21:00)
[2020-05-06] MEDS: HYDROmorphone 1 mg/ml syringe IV PRN (22:36)
--- NOTE | 2020-05-06 22:51 | NUR ---
Patient refusing to allow me to take out Simon catheter tonight. Educated on the importance of taking them out. Patient wants catheter to be taken out in the morning.
[2020-05-07] MEDS: ceFAZolin 1GM/D5W- ADD-VANTAGE 50 ML IV SCH (00:01)
[2020-05-07] MEDS: potassium cl 20mEq in 1/2 NS 1,000 ML IV SCH (01:25)
[2020-05-07] MEDS: oxyCODONE IR 5mg (immed. release) tablet PO PRN ×2 (01:25→07:55)
[2020-05-07 02:00] VITALS: BP 127/69
[2020-05-07] MEDS: HYDROmorphone 1 mg/ml syringe IV PRN (04:27)
--- NOTE | 2020-05-07 05:28 | NUR ---
DC'D Simon Catheter, patient tolerated procedure well.
[2020-05-07 06:00] VITALS: BP 132/78
--- NOTE | 2020-05-07 06:24 | NUR ---
Problems reprioritized. Patient report given, questions answered & plan of care reviewed with Dixie MCALLISTER.
[2020-05-07 06:26] LABS: BASOPHILS % (AUTO) 0.4 % (0-1); EOSINOPHILS # (AUTO) 0.4 X10'3 (0-0.9); HEMATOCRIT 31.5 % (35.0-45.0); HEMOGLOBIN 9.7 g/dl (12.0-16.0); LYMPHOCYTES # (AUTO) 0.8 X10'3 (1.1-4.8); LYMPHOCYTES % (AUTO) 7.3 % (21-51); MEAN CORPUSCULAR HEMOGLOBIN 21.2 PG (27.0-31.0); MEAN CORPUSCULAR HGB CONC 30.9 g/dL (33.0-36.5); MEAN CORPUSCULAR VOLUME 68.4 FL (78-98); MEAN PLATELET VOLUME 8.6 FL (7.4-10.4); MONOCYTES # (AUTO) 1.2 X10'3 (0-0.9); MONOCYTES % (AUTO) 10.9 % (2-12); NEUTROPHILS # (AUTO) 8.2 X10'3 (1.8-7.7); NEUTROPHILS % (AUTO) 77.4 % (42-75); PLATELET COUNT 302 X10'3 (140-440); RED CELL DISTRIBUTION WIDTH 21.3 % (11.5-14.5); WHITE BLOOD COUNT 10.6 X10'3 (4.5-11.0)
[2020-05-07 06:33] LABS: ANION GAP 5 (8-16); CHLORIDE 105 MMOL/L (99-107); POTASSIUM 4.4 MMOL/L (3.5-5.1); SODIUM 137 MMOL/L (135-145); TOTAL CARBON DIOXIDE 27.2 MMOL/L (24-32)
[2020-05-07 07:07] LABS: ANISOCYTOSIS 3+; MICROCYTOSIS 2+; PLATELET ESTIMATE NORMAL
[2020-05-07 07:08] LABS: HYPOCHROMASIA 2+
[2020-05-07] MEDS ORDERED: ASPI-1 PO (07:48)
[2020-05-07] MEDS: furosemide 20MG tablet PO SCH (07:58)
[2020-05-07] MEDS: duloxetine 30mg CAPSULE.DR PO SCH (07:58)
[2020-05-07] MEDS: potassium chloride 8mEq ER tablet PO SCH (07:58)
[2020-05-07] MEDS: pantoprazole 40mg Tablet.DR PO SCH (07:59)
[2020-05-07] MEDS: aspirin 325mg tablet PO SCH (07:59)
[2020-05-07] MEDS: ascorbic acid 500mg tablet PO SCH (07:59)
[2020-05-07] MEDS: multivitamins, therapeutics tablet PO SCH (07:59)
[2020-05-07] MEDS: gabapentin 300mg capsule PO SCH (07:59)
--- NOTE | 2020-05-07 11:42 | NUR ---
Joint Replacement Consult: Pt seen by DELON for written/verbal high protein ed w/ RD contact information provided. Addendum: 05/07/20 at [address] Amended: Links added.
[2020-05-07] MEDS ORDERED: celeCOXIB 100mg capsule PO SCH (20:00)
== END 2020-05-07 11:00 | disposition home or self-care (01) | DRG 467 ==
LOC: PAS 09:04 → ORTHO 4S 15:47 → OBSVTOIN 05-07 07:00
PROVIDERS: ADMIT Orthopaedic Surgery; ATTEND Orthopaedic Surgery
PROC: 0SRB0EZ Replacement of Left Hip Joint with Articulating Spacer, Open Approach (ICD-10-PCS; principal; 2020-05-07)
PROC: 0SPB0JZ Removal of Synthetic Substitute from Left Hip Joint, Open Approach (ICD-10-PCS; 2020-05-07)
DX: T84.52XA Infection and inflammatory reaction due to internal left hip prosthesis, initial encounter (principal); D62 Acute posthemorrhagic anemia; Z68.42 Body mass index [BMI] 45.0-49.9, adult; Z89.622 Acquired absence of left hip joint; M16.12 Unilateral primary osteoarthritis, left hip; E03.9 Hypothyroidism, unspecified; F32.9 Major depressive disorder, single episode, unspecified; K21.9 Gastro-esophageal reflux disease without esophagitis; E66.01 Morbid (severe) obesity due to excess calories; F41.9 Anxiety disorder, unspecified; Y92.89 Other specified places as the place of occurrence of the external cause; Y83.1 Surgical operation with implant of artificial internal device as the cause of abnormal reaction of the patient, or of later complication, without mention of misadventure at the time of the procedure
CPT/HCPCS: Z7506; Z7508; 36415; 72170; 80051; 80053; 82948; 85025; 85610; 85730; 86870; 86880; 86885; 86900; 86901; 86905; 86922; 87070; 87081; 97110; 97116; 97161; 97530; A4615; A6258; A7000; A9272; C1713; C1758; C1776; G0378; J0171; J0690; J0735; J1170; J1200; J1885; J2250; J2270; J2704; J2765; J2795; J3010; J3370; J3480; J7040; J7120

== ENCOUNTER 2020-06-10 11:36 | Outpatient (CLI) | payer BC ==
[~2020-06-10 11:36] MED LIST changes: +ASPI-1 PO; -ASPI81TA52 PO; -HYDROmorphone inj. 0.5 MG/0.5 ML DISP.SYRIN IV PRN; -acetaminophen 325mg tablet PO ONE; -acetaminophen 325mg tablet PO PRN; -bisacodyl 10mg suppository rectal RC PRN; -ceFAZolin 1,000 MG/D5W 50ML IVPB Premixed bag IV ONE; -ceFAZolin 1GM/D5W- ADD-VANTAGE 50 ML IV SCH; -ceFAZolin 2gm in dextrose, iso 50 ML IV ONE; -celeCOXIB 100mg capsule PO ONE; -diphenhydrAMINE 25mg capsule PO PRN; -famotidine 20mg tablet PO ONE; -gabapentin 300mg capsule PO ONE; -magnesium hydroxide 30ml (MOM) UD suspension PO PRN; -metoclopramide 5 mg/ml inj IV ONE; -ondansetron/PF 4mg/2ml inj IV PRN; -oxyCODONE SR 10mg (sust. release) tab -2 tabs (20mg) PO ONE; -tranexamic acid inj. 1,000 MG in normal saline 100 ML IV ONE; -tranexamic acid inj. 1,000 MG in normal saline 100ml IV soln 100 ML IV ONE; -vancomycin 1,500 MG in NS 300ml IV soln IV ONE
[2020-06-10 12:29] LABS: BASOPHILS # (AUTO) 0.1 X10'3 (0-0.2); BASOPHILS % (AUTO) 0.7 % (0-1); EOSINOPHILS % (AUTO) 8.7 % (0-6); HEMATOCRIT 34.8 % (35.0-45.0); LYMPHOCYTES # (AUTO) 2.6 X10'3 (1.1-4.8); LYMPHOCYTES % (AUTO) 21.6 % (21-51); MEAN CORPUSCULAR HEMOGLOBIN 21.2 PG (27.0-31.0); MEAN CORPUSCULAR HGB CONC 31.5 g/dL (33.0-36.5); MEAN CORPUSCULAR VOLUME 67.1 FL (78-98); MEAN PLATELET VOLUME 8.3 FL (7.4-10.4); MONOCYTES # (AUTO) 1.2 X10'3 (0-0.9); MONOCYTES % (AUTO) 10.2 % (2-12); NEUTROPHILS % (AUTO) 58.8 % (42-75); PLATELET COUNT 407 X10'3 (140-440); RED BLOOD COUNT 5.18 X10'6 (4.20-5.60); RED CELL DISTRIBUTION WIDTH 21.4 % (11.5-14.5); WHITE BLOOD COUNT 11.9 X10'3 (4.5-11.0)
[2020-06-10 12:44] LABS: ALANINE AMINOTRANSFERASE 147 U/L (12-78); ALBUMIN 3.8 G/DL (3.4-5.0); ALBUMIN/GLOBULIN RATIO 0.9 (1.1-1.5); ALKALINE PHOSPHATASE 357 IU/L (46-116); ANION GAP 9 (8-16); ASPARTATE AMINO TRANSFERASE 25 U/L (10-37); BILIRUBIN,TOTAL 0.3 MG/DL (0.1-1.0); BLOOD UREA NITROGEN 18 MG/DL (7-18); BUN/CREATININE RATIO 21.2 (6.6-38.0); CALCIUM 9.4 MG/DL (8.5-10.1); CHLORIDE 101 MMOL/L (99-107); CREATININE 0.85 MG/DL (0.40-0.90); GLUCOSE 98 MG/DL (70-104); POTASSIUM 4.4 MMOL/L (3.5-5.1); SODIUM 136 MMOL/L (135-145); TOTAL CARBON DIOXIDE 26.4 MMOL/L (24-32); TOTAL PROTEIN 7.9 G/DL (6.4-8.2); eGFR 71 ML/MIN
[2020-06-10 13:17] LABS: ANISOCYTOSIS 3+; PLATELET ESTIMATE NORMAL
[2020-06-10 13:18] LABS: % IRON SATURATION 5 % (11-46); HYPOCHROMASIA 1+; IRON 22 UG/DL (49-151); MICROCYTOSIS 2+; POLYCHROMASIA 1+; TOTAL IRON BINDING CAPACITY 446 UG/DL (259-388)
[2020-06-10 13:20] LABS: POIKILOCYTOSIS FEW
== END 2020-06-10 23:59 | disposition home or self-care (01) ==
LOC: LAB 11:36
PROVIDERS: ATTEND Family Medicine
DX: E11.9 Type 2 diabetes mellitus without complications (principal); M25.552 Pain in left hip; R53.83 Other fatigue; R76.8 Other specified abnormal immunological findings in serum
CPT/HCPCS: 36415; 80053; 83540; 83550; 85008; 85025; 86706; 87522; 87902